=== PATIENT | female | born 1935 | race Asian ===

== ENCOUNTER 2016-11-10 12:43 | Outpatient (CLI) | payer MEDICARE ==
--- NOTE | 2016-11-10 17:56 | MRI Report ---
EXAM: MRI LUMBAR SPINE WITHOUT CONTRAST EXAM DATE: 11/10/2016 01:56 PM. CLINICAL HISTORY: Left sciatica. COMPARISON: 07/13/2016 plain x-ray of the lumbar spine. TECHNIQUE: Multiplanar, multisequence T1-weighted and fluid-sensitive sequences of the lumbar spine f rom T12 to S1 without contrast. Other: None. FINDINGS: Spinal Cord: The conus terminates at T12. No signal abnormality in the visualized spinal cord. Alignment: 4 mm retrolisthesis at T12-L1, similar to previous. 12.4 degrees of levoscoliosis between T11-T12 and L1-L2. Bone Marrow: Compression fracture at T12 involves the superior endplate only, with loss of about 50% of vertebral body height. No abnormal increased T2 signal seen in the vertebral body marrow. No gross fractures or bone lesions. No bone marrow edema. Disk Levels/Facets: T12-L1: Some disk dehydration, retrolisthesis and broad-based disk bulge. Mild central stenosis, no f oraminal stenosis. L1-L2: Broad-based bulge is noted. Mild central stenosis. Prominent facets. No foraminal stenosis L2-L3: Broad-based disk bulge. Prominent facets. L3-L4: Broad-based disk bulge. Prominent facets. No central or foraminal stenosis. L4-L5: Broad-based disk bulge is seen, slightly indenting the ventral thecal sac. Left lateral disk i ntraforaminal protrusion/extrusion with effacement and flattening of the exiting left L4 root on seri es 401 image 2. L5-S1: Disk dehydration, broad-based disk bulge. There is a left lateral focal protrusion also coming into contact with, effacing and slightly flattening the left S1 root in the subarticular zone on ser ies 901 image 5. This is 1.2 x 0.7 cm transversely and extends for a cephalocaudal distance of 0.9 cm . Musculature: Moderate fatty atrophy of the multifidus muscle. Other: The visualized pelvic cavity is unremarkable. IMPRESSION: 1. Spinal cord terminates at T12 which is normal. No abnormal cord signal is noted. 4 mm of retrolist hesis at T12-L1, similar to previous. 12.4 degrees of levoscoliosis between T11-T12 and L1-L2. Modera te fatty atrophy of the multifidus muscles is identified. Compression fracture at T12 involves about 50% of the anterior vertebral body height. No involvement of the posterior vertebral body cortex. Thi s is old. No edema in the vertebral body marrow. 2. T12-L1 shows disk dehydration, retrolisthesis and broad-based bulge with some disk uncovering. Mil d central stenosis, no foraminal stenosis. 3. L1-L2 shows a broad-based disk bulge, mild central stenosis. No foraminal stenosis. 4. L2-L3 shows a broad-based bulge, prominent facets and no stenosis. 5. L3-L4 shows a broad-based disk bulge and prominent facets and no stenosis. 6. L4-L5 shows a broad-based disk bulge slightly indenting the ventral thecal sac. There is a left la teral intraforaminal protrusion/extrusion with effacement and flattening of the exiting left L4 root. No central stenosis. Right neural foramen normal. 7. L5-S1 shows some disk dehydration and broad-based bulge. Left lateral focal protrusion with efface ment and deformity of the left S1 root in the subarticular zone. Mild central stenosis. No foraminal stenosis. Comment: The following findings are so common in adults without low back pain that while we report th eir presence, they must be interpreted with caution and in the context of the clinical situation. (Re serenity Rossk et al, Spine 2001) Prevalence of findings in patients without low back pain: Disk degeneration (any evidence): 92% Disk desiccation/T2 signal loss: 83% Disk height loss: 56% Disk bulge: 64% Disk protrusion: 32% Annular tear/high intensity zone: 38% [facility] Referring Provider Line: [phone] SITE ID: [id number]
== END 2016-11-10 12:44 | disposition home or self-care (01) ==
LOC: DI 12:43
PROVIDERS: ATTEND Family Medicine
DX: M48.54XA Collapsed vertebra, not elsewhere classified, thoracic region, initial encounter for fracture (principal); M51.35 Other intervertebral disc degeneration, thoracolumbar region; M51.26 Other intervertebral disc displacement, lumbar region; M51.36 Other intervertebral disc degeneration, lumbar region; M41.86 Other forms of scoliosis, lumbar region; M41.84 Other forms of scoliosis, thoracic region; M43.15 Spondylolisthesis, thoracolumbar region; M51.27 Other intervertebral disc displacement, lumbosacral region; M51.37 Other intervertebral disc degeneration, lumbosacral region
CPT/HCPCS: 72148

== ENCOUNTER 2017-03-14 09:38 | Outpatient (CLI) | payer MEDICARE, MEDICAID ==
--- NOTE | 2017-03-16 12:46 | DEXA Report ---
DEXA SCAN: 03/14/2017 CLINICAL INDICATION: Osteoporosis. TECHNIQUE: Dual energy x-ray absorptiometry (DXA) was performed on a [email or web address] system. Regions measured are the AP spine, femoral neck, and, if needed, forearm. COMPARISON: None. In accordance with the International Society for Clinical Densitometry (ISCD) guidelines, data from previous exams may be reanalyzed using current recommendations and techniques. This is done to allow a more accurate basis for comparison with the current study. FINDINGS: The data for the lumbar spine is as follows: REGION BMD (g/cm/cm) T-SCORE Z-SCORE L1 0.754 -3.1 -0.8 L2 0.775 -3.5 -1.2 L3 0.931 -2.2 0.1 L4 1.058 -1.2 1.2 TOTAL 0.893 -2.4 0.0 NOTE: All evaluable vertebrae are used for classification. The data for the hip is as follows: REGION BMD (g/cm/cm) T-SCORE Z-SCORE Neck 0.638 -2.9 -0.4 TOTAL 0.707 -2.4 0.0 NOTE: The femoral neck or total proximal femur, whichever is lowest, is used for classification. IMPRESSION THE WHO CLASSIFICATION BASED ON THE INTERNATIONAL REFERENCE STANDARD IS OSTEOPOROSIS (REFERENCE LEFT FEMORAL NECK). THE FRACTURE RISK IS HIGH. RECOMMENDATION: Patients with diagnosis of osteoporosis or osteopenia should have regular bone mineral density assessment. For those eligible for Medicare, routine testing is allowed once every 2 years. Testing frequency can be increased for patients who have rapidly progressing disease or for those who are receiving medical therapy to restore bone mass. COMMENT: World Health Organization (WHO) definitions for osteoporosis and osteopenia: NORMAL BMD: T-score at 1.0 or higher, fracture risk is low. OSTEOPENIA BMD: T-score between 1.0 and -2.5, fracture risk is increased. OSTEOPOROSIS BMD: T-score at 2.5 or lower, fracture risk high. National Osteoporosis Foundation recommends: 1. Obtain adequate dietary calcium (at least 1200 mg per day) and vitamin D (400 -800 international units per day). 2. Participate, as appropriate, in regular weightbearing and muscle- strengthening exercise. 3. Avoid tobacco use and reduce alcohol and caffeine intake. 4. For more detailed information see the website at www.NOF.org. TD: 03/14/2017 12:27 MTDJeff
== END 2017-03-14 09:39 | disposition home or self-care (01) ==
LOC: DI 09:38
PROVIDERS: ATTEND Family Medicine
DX: Z78.0 Asymptomatic menopausal state (principal); M81.0 Age-related osteoporosis without current pathological fracture
CPT/HCPCS: 77080

== ENCOUNTER 2017-04-09 09:56 | Outpatient (CLI) | payer MEDICARE, MEDICAID ==
[2017-04-09 14:21] LABS: ALBUMIN 4.2 g/dL (3.2-5.5); ALBUMIN/GLOBULIN RATIO 1.4 (1.0-2.2); BILIRUBIN,TOTAL 0.8 mg/dL (0.2-1.0); CREATININE 0.5 mg/dL (0.4-1.0); TOTAL PROTEIN 7.3 g/dL (6.7-8.2)
[2017-04-09 15:01] LABS: BASOPHILS % (AUTO) 0.5 %; EOSINOPHILS # (AUTO) 0.2 10^3/uL (0.0-0.7); EOSINOPHILS % (AUTO) 3.7 %; HGB - HEMOGLOBIN 13.3 g/dL (12.0-16.0); LYMPHOCYTES % (AUTO) 32.5 %; MEAN CORPUSCULAR HEMOGLOBIN 30.9 pg (27.0-31.0); MEAN CORPUSCULAR HGB CONC 34.4 g/dL (32.0-36.0); MEAN CORPUSCULAR VOLUME 89.7 fL (81.0-99.0); MONOCYTES # (AUTO) 0.5 10^3/uL (0.0-1.0); MONOCYTES % (AUTO) 8.7 %; NEUTROPHILS # (AUTO) 3.3 10^3/uL (1.5-6.6); NEUTROPHILS % (AUTO) 54.6 %; PLT - PLATELET COUNT 233 10^3/uL (130-450); RED BLOOD COUNT 4.32 10^6/uL (4.20-5.40); RED CELL DISTRIBUTION WIDTH 13.8 % (12.0-15.0); WHITE BLOOD COUNT 6.1 x10^3/uL (4.8-10.8)
== END 2017-04-09 09:57 | disposition home or self-care (01) ==
LOC: LAB.WCP 09:56
PROVIDERS: ATTEND Family Medicine
DX: I10 Essential (primary) hypertension (principal)
CPT/HCPCS: 36415; 80053; 85025

== ENCOUNTER 2018-10-07 08:00 | Outpatient (CLI) | payer MEDICARE, MEDICAID ==
[2018-10-07 18:41] LABS: ALBUMIN 4.1 g/dL (3.2-5.5); ALBUMIN/GLOBULIN RATIO 1.2 (1.0-2.2); BILIRUBIN,TOTAL 0.6 mg/dL (0.2-1.0); CALCIUM 9.3 mg/dL (8.5-10.3); TOTAL PROTEIN 7.5 g/dL (6.7-8.2)
== END 2018-10-07 23:59 | disposition home or self-care (01) ==
LOC: LAB.WCP 08:00
PROVIDERS: ATTEND Family Medicine
DX: I48.0 Paroxysmal atrial fibrillation (principal)
CPT/HCPCS: 36415; 80053

== ENCOUNTER 2018-10-23 09:00 | Outpatient (CLI) | payer MEDICARE, MEDICAID ==
--- NOTE | 2018-10-24 16:11 | XRAY Report ---
Reason: CHF,AFIB,HTN Procedure Date: 10/24/2018 Accession Number: [id number] / [id number] Procedure: WCP - Chest 2 View X-Ray CPT Code: 74690 FULL RESULT: EXAM: CHEST RADIOGRAPHY EXAM DATE: 10/24/2018 01:56 PM. CLINICAL HISTORY: CHF, atrial fibrillation, hypertension. Shortness of breath. COMPARISON: None. TECHNIQUE: 2 views. FINDINGS: Lungs/Pleura: No focal pneumonia or edema evident. No gross pneumothorax or pleural effusion. Mediastinum: Mild to moderate cardiomegaly. Calcified and mildly tortuous aortic contour. Other: Moderate scoliosis. IMPRESSION: Mild to moderate cardiomegaly without overt heart failure. RAD[facility]
== END 2018-10-23 23:59 | disposition home or self-care (01) ==
LOC: DI.WCP 09:00 → EDSTATUS 10-24 13:35
PROVIDERS: ATTEND Family Medicine
DX: I50.9 Heart failure, unspecified (principal); I48.91 Unspecified atrial fibrillation; R06.02 Shortness of breath
CPT/HCPCS: 71046

== ENCOUNTER 2018-10-24 08:00 | Outpatient (CLI) | payer MEDICARE, MEDICAID ==
[2018-10-24 18:54] LABS: HGB - HEMOGLOBIN 12.5 g/dL (12.0-16.0); MEAN CORPUSCULAR HEMOGLOBIN 29.7 pg (27.0-31.0); MEAN CORPUSCULAR HGB CONC 31.9 g/dL (32.0-36.0); MEAN CORPUSCULAR VOLUME 93.1 fL (81.0-99.0); MEAN PLATELET VOLUME 10.4 fL (7.9-10.8); RED BLOOD COUNT 4.21 10^6/uL (4.20-5.40); RED CELL DISTRIBUTION WIDTH 14.3 % (12.0-15.0); WHITE BLOOD COUNT 7.2 x10^3/uL (4.8-10.8)
[2018-10-24 19:13] LABS: ALBUMIN 3.9 g/dL (3.2-5.5); ALBUMIN/GLOBULIN RATIO 1.3 (1.0-2.2); CALCIUM 10.2 mg/dL (8.5-10.3); CREATININE 0.7 mg/dL (0.4-1.0)
== END 2018-10-24 23:59 | disposition home or self-care (01) ==
LOC: LAB.WCP 08:00
PROVIDERS: ATTEND Family Medicine
DX: I50.9 Heart failure, unspecified (principal); I48.0 Paroxysmal atrial fibrillation; R06.02 Shortness of breath; I51.7 Cardiomegaly
CPT/HCPCS: 36415; 71046; 80053; 83880; 85027

== ENCOUNTER 2019-01-14 08:00 | Outpatient (CLI) | payer MEDICARE, MEDICAID ==
[2019-01-14 13:25] LABS: CREATININE 0.7 mg/dL (0.4-1.0)
== END 2019-01-14 23:59 | disposition home or self-care (01) ==
LOC: LAB.WCP 08:00
PROVIDERS: ATTEND Family Medicine
DX: I48.91 Unspecified atrial fibrillation (principal); I34.0 Nonrheumatic mitral (valve) insufficiency; R60.0 Localized edema; I10 Essential (primary) hypertension
CPT/HCPCS: 36415; 80048

== ENCOUNTER 2020-08-16 22:34 | Outpatient (CLI) | payer MEDICARE, MEDICAID | END 2020-08-16 22:35 | disposition critical access hospital (66) | LOC: EMS 22:34 | DX: R40.4 Transient alteration of awareness (principal); R22.0 Localized swelling, mass and lump, head | CPT/HCPCS: A0425; A0429 ==

== ENCOUNTER 2020-08-16 23:05 | Inpatient (IN) | payer MEDICARE, MEDICAID ==
--- NOTE | 2020-08-16 23:04 | ED Physician Documentation ---
PD HPI FOCAL NEURO - Stated complaint Stated Complaint: STROKE - History obtained from History obtained from: Family (daughter (in ED at bedside)), EMS - History of Present Illness Timing - onset: Enter time (22:00) Timing - details: Still present in ED, Other (unknown) Time of symptom onset unknown: Time of onset unknown (last known normal 14:00, found down 22:00) Severity of deficit: Severe Weakness: Arm, Leg, Right Contributing factors: positive: Atrial fibrillation. negative: Anticoagulated Baseline status: positive: A&OX3, ambulatory, indep Similar symptoms before: Has not had sx before - Additional information Additional information: BIBA. patient is severely altered (AMS) and thus does not contribute to HPI/ROS. patient's daughter, who lives next door to patient, says that she last saw patient at 2 PM today at which time patient was out in the garden and in her usual state of sabrina (ambulatory and AAOx3). At approximately 10 PM tonight, patient was found by her granddaughter (who lives with patient) on the floor unresponsive. EMS notes patient is not moving right upper/lower extremity, has left gaze deviation, and aphasic, not following commands. Patient has POLST form indicating DNR and limited interventions Review of Systems Unable to obtain: AMS PD PAST MEDICAL HISTORY - Past Medical History Cardiovascular: Hypertension, High cholesterol, Atrial fibrillation - Present Medications Home Medications: Ambulatory Orders Medication Instructions Recorded Confirmed Diltiazem HCl [Cardizem LA] 240 mg PO DAILY 08/17/20 08/17/20 Furosemide [Lasix] 40 mg PO DAILY 08/17/20 08/17/20 Potassium Chloride [Klor-Con 10] 10 meq PO DAILY 08/17/20 08/17/20 Rivaroxaban [Xarelto] 20 mg PO QDDINNER 08/17/20 08/17/20 Rosuvastatin Calcium [Crestor] 2.5 mg PO QPM 08/17/20 08/17/20 - Allergies Allergies/Adverse Reactions: Allergies Allergy/AdvReac Type Severity Reaction Status Date / Time No Known Drug Allergies Allergy Verified 08/17/20 00:55 - Living Situation Living Situation: reports: With family Living Arrangement: reports: At home PD ED PE NORMAL - Vitals Vital signs reviewed: Yes - General General: Well developed/nourished PD ED PE EXPANDED - General General: Other (nonverbal, not following commands. frequent, nonpurposeful movement of LUE, no movement of RUE) - HEENT HEENT: PERRL HEENT Visual: 1 - bruising - Eyes Eyes: Other (left gaze deviation) - Cardiac Cardiac: Tachy, Irregularly irregular - Respiratory Respiratory: Clear to ausultation victor m - Abdomen Abdomen: Normal Bowel sounds. No: Tender to palpation - Neuro Neuro: Aphasia - GCS Eye Opening: Spontaneous Motor: Localizes to Pain Verbal: None Total: 10 NIHSS - Level of Consciousness Level of consciousness: (3) Responds only with reflex motor or autonomic effects LOC Questions: (2) Answers neither correct LOC Commands: (2)Performs none - Gaze Best Gaze: (2) Forced deviation - Visual Visual: (1) Partial hemianopia (questionbly testable with confrontation) - Facial Palsy Facial Palsy: (0) Normal, symmetrical movement - Motor Arms (both separate) Motor Arm (right): (4) No movement Motor Arm (left): (2) Some effort against gravity (not following commands, questionably testable) - Motor Legs (both separate) Motor Leg (right): (4) No movement Motor Leg (left): (2) Some effort against gravity (questionably testable due to not following commands) - Limb Ataxia Limb Ataxia: (0) Absent (unable to test due to not following commands) - Sensory Sensory: (0) Normal (unable to test due to not following commands and nonverbal) - Best Language Best Language: (3) Mute, global aphasia - Dysarthria Dysarthria: (0) Normal (unable to test, nonverbal) - Extinction and Inattention (formally neg Extinction and inattention: (2) Profound raoul-inattention or extinction to more than one modality - Total Score/Results Total Score/Result: 27 Results - Vitals Vitals: Oxygen O2 Source Room air - Labs Labs: Laboratory Tests 08/16/20 08/16/20 08/16/20 23:55 23:55 23:55 WBC 10.8 RBC 4.12 L Hgb 10.9 L Hct 36.2 L MCV 87.9 MCH 26.5 L MCHC 30.1 L RDW 16.7 H Plt Count 301 MPV 9.2 Neut # (Auto) 9.4 H Lymph # (Auto) 0.9 L Sanders # (Auto) 0.4 Eos # (Auto) 0.0 Baso # (Auto) 0.0 Absolute Nucleated RBC 0.00 Nucleated RBC % 0.0 PT 13.3 H INR 1.2 APTT 26.2 Sodium 137 Potassium 3.9 Chloride 98 L Carbon Dioxide 27 Anion Gap 12.0 BUN 17 Creatinine 0.5 Estimated GFR (MDRD) 118 Glucose 154 H Calcium 8.7 PD MEDICAL DECISION MAKING - ED course Complexity details: reviewed results, re-evaluated patient, considered differential, d/w family ED course: NIHSS score is estimated, as several aspects are not testable due to aphasia and not following commands. She has forced leftward gaze deviation, no movement of RUE and RLE. She is outside of window for consideration for thrombolytics. CTH is suggestive of evolving left MCA CVA. I discussed the case with the telestroke doctor and he recommends NOT giving thrombolytics nor transfer for procedural intervention (such as clot retrieval), and recommends comfort measures. D/W Dr. Perez, will admit to [facility] - [facility] CVA checklist Inclusion crititeria: positive: Sig neuro deficit, CT no bleed. negative: Onset know < 4.5 hr Absolute contraindications: positive: CT shows major est CVA Relative contraindications: positive: Too severe (NIHSS>22), Advanced age Absolute contraindications if 3-4.5 hr: positive: Age > 80 Departure - Departure Disposition: 66 [facility] DC/Xfer Clinical Impression: Cerebrovascular accident (CVA) Qualifiers: CVA mechanism: thrombosis Precerebral and cerebral artery: middle cerebral artery Laterality of affected vessel: left Qualified Code(s): I63.312 - Cerebral infarction due to thrombosis of left middle cerebral artery Condition: Stable Discharge Date/Time: 08/17/20 01:22
[2020-08-16] MEDS ORDERED: IOVERSOL 320 100 ML VIAL IVP ONE (23:45)
[2020-08-17] MEDS ORDERED: IOVERSOL 320 100 ML VIAL IVP ONE (00:03)
[2020-08-17 00:08] LABS: BASOPHILS % (AUTO) 0.4 %; HCT - HEMATOCRIT 36.2 % (37.0-47.0); HGB - HEMOGLOBIN 10.9 g/dL (12.0-16.0); LYMPHOCYTES # (AUTO) 0.9 10^3/uL (1.5-3.5); LYMPHOCYTES % (AUTO) 8.7 %; MEAN CORPUSCULAR HEMOGLOBIN 26.5 pg (27.0-31.0); MEAN CORPUSCULAR HGB CONC 30.1 g/dL (32.0-36.0); MEAN CORPUSCULAR VOLUME 87.9 fL (81.0-99.0); MEAN PLATELET VOLUME 9.2 fL (7.9-10.8); MONOCYTES # (AUTO) 0.4 10^3/uL (0.0-1.0); MONOCYTES % (AUTO) 3.7 %; NEUTROPHILS # (AUTO) 9.4 10^3/uL (1.5-6.6); NEUTROPHILS % (AUTO) 86.9 %; PLT - PLATELET COUNT 301 10^3/uL (130-450); RED BLOOD COUNT 4.12 10^6/uL (4.20-5.40); RED CELL DISTRIBUTION WIDTH 16.7 % (12.0-15.0); WHITE BLOOD COUNT 10.8 x10^3/uL (4.8-10.8)
[2020-08-17 00:17] LABS: INR 1.2 (0.8-1.2); PT - PROTHROMBIN TIME 13.3 secs (9.9-12.6)
[2020-08-17 00:19] LABS: CALCIUM 8.7 mg/dL (8.5-10.3); CREATININE 0.5 mg/dL (0.4-1.0); POTASSIUM 3.9 mmol/L (3.5-5.0)
[2020-08-17 00:24] LABS: PARTIAL THROMBOPLASTIN TIME 26.2 secs (24.9-33.3)
[2020-08-17] MEDS ORDERED: ONDANSETRON 4 MG/2 ML VIAL IVP PRN (00:35)
[2020-08-17] MEDS ORDERED: SODIUM CHLORIDE FLUSH 0.9% 10 ML SYRINGE IVP PRN (00:35)
--- NOTE | 2020-08-17 00:43 | HISTORY & PHYSICAL EXAMINATION ---
Chief Complaint - Chief Complaint Chief Complaint: Stroke History of Present Illness - Admitted From Admitted From:: ED - History Obtained From History obtained from: ED provider - History of Present Illness HPI Comment/Other: This is an 84-year-old [place]i female with a history of A. fib. She lives with a family member and her daughter lives next door. This patient's last known well was 2 PM when she was walking and talking normally. At 10 PM, her granddaughter found her on the floor, unable to speak. She was brought to the ER. The exam showed that she was flaccid on the right side, aphasic and unable to follow commands. She also had left gaze deviation. A head CT and head and neck CTA show findings of a subacute parenchymal brain infarction, and a thrombus (or dissection) in the left carotid artery extending into and occluding the left MCA territory. The posterior circulation is also abnormal. The ED provider reached out to Telestroke Neurology and they reviewed the case and the images. The Neurologist said the patient is not a candidate for anticoagulation or antithrombotics because of her DNR status and limited intervention status and also because she is out of the window of time for intervention, especially given how dense the stroke already is. The Telestroke Neurologist told our ED provider that she has a very bad prognosis and that she will likely need complete senior care care for the rest of her life. The Hospitalist team was contacted, and we are admitting her for management of an acute completed stroke. 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 - Family & Social History Living arrangement: At home Living Situation: With family - Substance History Use: Uses substance without health or social issues: NONE Meds/Allgy - Allergies Allergies/Adverse Reactions: Allergies Allergy/AdvReac Type Severity Reaction Status Date / Time No Known Drug Allergies Allergy Verified 08/17/20 00:55 Review of Systems - Constitutional Constitutional: reports: Other (It is unknown if she takes any meds whatsoever, nothing is listed.) - Musculoskeletal Musculoskeletal: reports: Muscle weakness - Neurological Neurological: reports: Focal weakness, Other (Aphasia) - All Other Systems All Other Systems: reports: Other (Limited review of systems performed from chart review and evaluating the patient, because daughter has left her bedside (and the pt speaks Tagalog).) Exam - Vital Signs Vital Signs: Vital Signs x48h Temp Pulse Resp BP Pulse Ox 08/16/20 23:08 36.8 C 112 H 20 158/124 H 92 - Physical Exam General Appearance: positive: Mild distress (Tachypneic) Eyes Bilateral: positive: Other (L gaze preference) ENT: positive: ENT inspection nml Neck: positive: Nml inspection (No JVD, No carotid bruits) Respiratory: positive: Breath sounds nml, Other (Tachypneic) Cardiovascular: positive: Irregularly irregular, Other (Tachy, no murmur) Abdomen: positive: Non-tender, Nml bowel sounds Skin: positive: Warm, Dry Extremities: positive: No pedal edema Neurologic/Psychiatric: positive: Other (Lethargic, moving L arm & leg slightly, R arm and leg flaccid, DTRs sluggish) Babinski Reflex: Right: Absent, Left: Absent Conclusion/Plan - Problem List (1) Cerebrovascular accident (CVA) Conclusion/Plan: Will place the patient on telemetry, monitor her rhythm and rate. Await for reconciliation of all her meds, resume any meds that can be given iv. Will order a purewick cath. Will order strict n.p.o. until she has a swallowing evaluation. Will give gentle iv hydration. We will order OT and PT evaluations and await their input as to whether she is rehabable or will indeed need senior care care. We will obtain an Echo to rule out cardiac source of embolus. Whether she undergoes a brain MRI will remain to be decided, since the results on head CT are already showing the problem. Permissive hypertension will be allowed for 1 to 2 days. Otherwise Labetalol IV will be used for blood pressure control. We will start 1 aspirin per rectum daily. Will obtain a fasting lipid panel in the morning. But it is unknown if she will be able to ever take a statin, if she cannot swallow. Qualifiers: CVA mechanism: thrombosis Precerebral and cerebral artery: middle cerebral artery Laterality of affected vessel: left Qualified Code(s): I63.312 - Cerebral infarction due to thrombosis of left middle cerebral artery (2) Carotid thrombosis Conclusion/Plan: As per findings on head and neck CT imaging. She is not a candidate for thrombolysis however, as described above. Will give daily aspirin, orally or per rectum if she cannot swallow. We will obtain Echo to evaluate for source of emboli Qualifiers: Laterality: left Qualified Code(s): I65.22 - Occlusion and stenosis of left carotid artery (3) HTN (hypertension) Conclusion/Plan: Patient is currently hypertensive at 159/129. We will allow permissive hypertension for 1 to 2 days. We will order only IV medicine for blood pressure control. (4) Atrial fibrillation with RVR Conclusion/Plan: The ED provider told me that she has a history of A. fib, it is unknown if she is on any heart rate slowing meds for this. She was not taking any anticoagulation as per the daughter. Her heart rates are reaching 110-170. We will start scheduled Labetalol IV for both heart rate and blood pressure c ontrol. Aspirin is planned for her stroke treatment, no anticoagulation use, since the risk of becoming a hemorrhagic stroke is possible in this early phase. (5) Abnormal EKG Conclusion/Plan: The EKG shows the rapid A. fib but also suggests that she has had an inferior AL in the past. There is no prior EKG in [facility] to compare. We will check a troponin level x2. We will await the Echo to look for wall motion maladies. Will await reconciliation of any home medications, order these IV if we can. (6) Anemia Conclusion/Plan: Would normally plan to work-up for B12, folate deficiency or iron deficiency however if her neurologic status rapidly worsens, will hold off on these labs for work-up. However, because 1 daily aspirin per rectum is being ordered, will order guaiac of the stool to assure that it is guaiac negative. - Lab Results Fish Bones: 08/16/20 23:55 08/16/20 23:55 - EKG Results EKG Interpreted Independently: Yes EKG Comparison: No prior EKG EKG Findings: Afib, rate 140, inferior Q waves and T wave flattening present, poor R wave progression.
[2020-08-17] MEDS ORDERED: D5.45NS W/20 MEQ KCL 1,000 ML IV SCH (01:00)
[2020-08-17] MEDS: SODIUM CHLORIDE FLUSH 0.9% 10 ML SYRINGE IVP SCH ×3 (01:38→15:50)
[2020-08-17] MEDS: LABETALOL 20 MG/4 ML SYRINGE IVP SCH ×2 (02:54→10:06)
[2020-08-17 03:33] LABS: B. PARAPERTUSSIS- RESP PCR PAN NOT DETECTED; B. PERTUSSIS- RESP PCR PANEL NOT DETECTED; C. PNEUMONIAE- RESP PCR PANEL NOT DETECTED; CORONAVIRUS 229E-RESP PCR NOT DETECTED; CORONAVIRUS HKU1-RESP PCR NOT DETECTED; CORONAVIRUS NL63-RESP PCR NOT DETECTED; CORONAVIRUS OC43-RESP PCR NOT DETECTED; HUMAN METAPNEUMOVIRUS NOT DETECTED; INFLUENZA A- RESP PCR PANEL NOT DETECTED; INFLUENZA B - RESP PCR PANEL NOT DETECTED; M. PNEUMONIAE- RESP PCR PANEL NOT DETECTED; PARAINFLUENZA VIRUS 1 NOT DETECTED; PARAINFLUENZA VIRUS 2 NOT DETECTED; PARAINFLUENZA VIRUS 3 NOT DETECTED; PARAINFLUENZA VIRUS 4 NOT DETECTED; RHINOVIRUS/ENTEROVIRUS NOT DETECTED; RSV- RESP PCR PANEL NOT DETECTED; SARS-CoV-2 -RESP PCR PANEL NOT DETECTED
[2020-08-17] MEDS ORDERED: hydrALAZINE INJ 20 MG/ML VIAL IVP PRN ×2 (04:18→10:42)
[2020-08-17 05:36] LABS: BASOPHILS % (AUTO) 0.3 %; HCT - HEMATOCRIT 38.5 % (37.0-47.0); HGB - HEMOGLOBIN 11.1 g/dL (12.0-16.0); LYMPHOCYTES # (AUTO) 0.8 10^3/uL (1.5-3.5); LYMPHOCYTES % (AUTO) 7.1 %; MEAN CORPUSCULAR HEMOGLOBIN 25.8 pg (27.0-31.0); MEAN CORPUSCULAR HGB CONC 28.8 g/dL (32.0-36.0); MEAN CORPUSCULAR VOLUME 89.3 fL (81.0-99.0); MEAN PLATELET VOLUME 10.8 fL (7.9-10.8); MONOCYTES # (AUTO) 0.4 10^3/uL (0.0-1.0); MONOCYTES % (AUTO) 3.4 %; NEUTROPHILS # (AUTO) 10.3 10^3/uL (1.5-6.6); NEUTROPHILS % (AUTO) 88.7 %; PLT - PLATELET COUNT 296 10^3/uL (130-450); RED BLOOD COUNT 4.31 10^6/uL (4.20-5.40); RED CELL DISTRIBUTION WIDTH 16.9 % (12.0-15.0); WHITE BLOOD COUNT 11.6 x10^3/uL (4.8-10.8)
[2020-08-17 05:40] LABS: SLIDE REVIEW? Indicated
[2020-08-17 05:57] LABS: ALBUMIN 4.7 g/dL (3.2-5.5); ALBUMIN/GLOBULIN RATIO 1.5 (1.0-2.2); ALKALINE PHOSPHATASE 100 IU/L (42-121); ALT ALANINE AMINOTRANSFERASE 28 IU/L (10-60); AST ASPARTATE AMINOTRANSFERASE 38 IU/L (10-42); BILIRUBIN,TOTAL 0.8 mg/dL (0.2-1.0); BUN - BLOOD UREA NITROGEN 16 mg/dL (6-20); CALCIUM 8.8 mg/dL (8.5-10.3); CARBON DIOXIDE - CO2 28 mmol/L (21-32); CHLORIDE 99 mmol/L (101-111); CHOLESTEROL 154 mg/dL; CREATININE 0.6 mg/dL (0.4-1.0); GFR - MDRD 95 (>89); GLUCOSE 203 mg/dL (70-100); HDL CHOLESTEROL 51 mg/dL; LDL CHOLESTEROL,CALCULATED 86 mg/dL; LDL/HDL RATIO 1.7 (<4.4); POTASSIUM 3.8 mmol/L (3.5-5.0); SODIUM 138 mmol/L (135-145); TOTAL PROTEIN 7.9 g/dL (6.7-8.2); TRIGLYCERIDES 87 mg/dL; VLDL CHOLESTEROL 17 mg/dL
[2020-08-17 06:06] LABS: PLATELET ESTIMATE, MANUAL NORMAL (130-450,000) (NORMAL); PLATELET MORPHOLOGY NORMAL APPEARANCE (NORMAL); WBC MORPHOLOGY (MULTIPLE) NORMAL APPEARANCE (NORMAL)
--- NOTE | 2020-08-17 08:03 | CT Report ---
PROCEDURE: Head W/O Stroke Protocol INDICATIONS: AMS TECHNIQUE: Noncontrast 4.5 mm thick angled axial sections acquired from the foramen magnum to the vertex, with c oronal reformats. For radiation dose reduction, the following was used: automated exposure control, adjustment of mA and/or kV according to patient size. COMPARISON: CT angiogram of the head 08/16/2020 FINDINGS: Image quality: Excellent. CSF spaces: Basal cisterns are patent. No extra-axial fluid collections. Ventricles are normal in size and shape. Brain: There is hypoattenuation with loss of wallace-white matter differentiation involving most of the left MCA territory. In addition, there is a hyperdense appearance of the left M1 segment suggesting t he presence of an occlusive thrombus at this location. This was confirmed on a subsequently obtained CT angiogram of the head. Wallace-white matter differentiation in the remaining brain parenchyma is main tained. There is no evidence of acute intracranial hemorrhage. Punctate senescent basal ganglia calci fications are present. Skull and face: Calvarium and visualized facial bones are intact, without suspicious lesions. Sinuses: Visualized sinuses and mastoids are clear. IMPRESSION: Findings indicative of acute versus early subacute left MCA infarct with a left M1 segme nt thrombus. No significant change from the preliminary report. This study fulfills neurological imaging criteria for inclusion or exclusion of acute stroke therapie s based on available published neurological imaging guidelines. Reviewed by: Blanco Ivey MD on 08/17/2020 8:02 AM PDT Approved by: Blanco Ivey MD on 08/17/2020 8:02 AM PDT Station ID: [id number]
--- NOTE | 2020-08-17 08:23 | CT Report ---
PROCEDURE: ANGIO NECK W INDICATIONS: Left-sided facial droop, left neck pain CONTRAST: IV CONTRAST: Optiray 320 ml: 80 PO CONTRAST: *NO PO CONTRAST TECHNIQUE: After the administration of intravenous contrast, 1.5 mm axial sections acquired from the aortic arch to the [place] of [place]. Coronal 3-D maximum intensity projection (MIP) and/or volume rendering ref ormats were then performed. For radiation dose reduction, the following was used: automated exposur e control, adjustment of mA and/or kV according to patient size. COMPARISON: CT angiogram of the head FINDINGS: Image quality: Excellent. Carotid system: Standard 3 vessel aortic arch anatomy. Atherosclerotic calcifications in the aortic a rch extending into the arch branch vessel origins without hemodynamically significant stenosis. The b ilateral common carotid arteries are normal in caliber. There is atherosclerotic plaque and calcifica tion at the carotid bifurcations which produces severe stenosis of the left carotid bifurcation which progresses to complete occlusion of the entire left internal carotid artery from the level of its or igin to the carotid terminus. There is atherosclerotic plaque and calcification in the remaining inte rnal carotid artery on the left. There is only mild stenosis of the right carotid bifurcation up to 2 0% with no significant narrowing of the remaining right internal carotid artery. Posterior circulation: Vertebral artery origins appear widely patent. There is atherosclerotic plaque and calcification in the right greater than left V4 segments, extending into the basilar artery. The left vertebral artery appears slightly dominant. Soft tissues: Visualized neck soft tissues demonstrate no suspicious abnormalities. The thyroid is normal in size and there are no incidental findings. Bones: No suspicious bony lesions. Visualized cervical spine appears normally aligned. 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 Severe stenosis of the left carotid bifurcation. Mild stenosis of the right carotid bifurcation. Mild narrowing of the V4 segments. The estimate of stenosis included in the report of the imaging study was calculated using the NASCET method CLINICAL RECOMMENDATION STATEMENTS: In patients <35 years with an ITN detected on CT, MRI, or extrathyroidal ultrasound, the Committee re commends further evaluation with dedicated thyroid ultrasound if the nodule is ?1 cm and has no suspi cious imaging features, and if the patient has normal life expectancy. In patients ?35 years with an ITN detected on CT, MRI, or extrathyroidal ultrasound, the Committee re commends further evaluation with dedicated thyroid ultrasound if the nodule is ?1.5 cm and has no diana picious imaging features, and if the patient has normal life expectancy. (ACR, 2014) Reviewed by: Blanco Ivey MD on 08/17/2020 8:21 AM PDT Approved by: Blanco Ivey MD on 08/17/2020 8:21 AM PDT Station ID: [id number]
--- NOTE | 2020-08-17 08:54 | CT Report ---
PROCEDURE: ANGIO HEAD W/WO INDICATIONS: AMS, left weakness, gaze deviation CONTRAST: IV CONTRAST: Optiray 320 ml: 80 PO CONTRAST: *NO PO CONTRAST TECHNIQUE: Precontrast 4.5 mm thick angled axial sections acquired from the foramen magnum to the vertex. Afte r the administration of intravenous contrast, 1 mm thick sections acquired through the Ollie of Will is. Postcontrast 4.5 mm thick sections then re-acquired from the foramen magnum to the vertex. 3-di mensional wwxikzp-jvjftdjuy-bmhqnjafjs (MIP) and/or volume rendering reformats were acquired of the c entral intracranial vasculature. For radiation dose reduction, the following was used: automated ex posure control, adjustment of mA and/or kV according to patient size. COMPARISON: None FINDINGS: Image quality: Excellent. 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 There is also complete occlusion of the left M1 segment. There is diminished e nhancement throughout the entire left MCA territory. Right carotid siphon and proximal M1 atheroscler otic disease without hemodynamically significant stenosis. Posterior circulation: Atherosclerotic calcifications in the V4 segments and proximal basilar artery without significant stenosis. 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 CSF spaces: Ventricles are normal in size and shape. Basal cisterns are patent. No extra-axial flu id collections. Brain: No midline shift. No intracranial bleeds or masses. Wallace-white matter interface appears int act. Skull and face: Calvarium and facial bones appear intact, without suspicious lesions. Sinuses: Visualized sinuses and mastoids are clear. 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 Findings are consistent with acute versus early subacute infarct. 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 No change from the preliminary report. Reviewed by: Blanco Ivey MD on 08/17/2020 8:52 AM PDT Approved by: Balnco Ivey MD on 08/17/2020 8:52 AM PDT Station ID: [id number]
[2020-08-17] MEDS ORDERED: LABETALOL 20 MG/4 ML SYRINGE IVP SCH (09:00)
[2020-08-17] MEDS: D5.45NS W/20 MEQ KCL 1,000 ML IV SCH ×2 (09:23→15:49)
[2020-08-17] MEDS: ASPIRIN 300 MG SUPP PR SCH (10:06)
[2020-08-17 11:14] LABS: BILIRUBIN,URINE NEGATIVE (NEGATIVE); GLUCOSE, URINE (UA) NEGATIVE (NEGATIVE); KETONES,URINE (UA) NEGATIVE (NEGATIVE); LEUKOCYTE ESTERASE, URINE NEGATIVE (NEGATIVE); NITRITE,URINE NEGATIVE (NEGATIVE); OCCULT BLOOD,URINE SMALL (NEGATIVE); PROTEIN,URINE TRACE mg/dL (NEGATIVE); UROBILINOGEN,URINE 0.2 (NORMAL) E.U./dL (NORMAL)
[2020-08-17 11:16] LABS: BACTERIA,URINE None Seen /HPF (None Seen); CLARITY,URINE CLEAR (CLEAR); MUCUS,URINE Few Strands; RBC,URINE 0-5 /HPF (0-5); SQUAMOUS EPITHELIAL CELL,UR RARE Squamous (<= Few); WBC,URINE 0-3 /HPF (0-5)
--- NOTE | 2020-08-17 12:59 | CONSULTATION NOTE ---
Palliative Care Consultation - Referral Referring Provider: CARLA Rdz Time of Visit: 7227-7491 Referral setting: Hospitalized patient Referral Reason: CVA/Advanced Care Planning - Information Sources Records reviewed: Previous records reviewed History/Review of Systems obtained from: Nursing (JAMIR Gorman), Other (Hospitalist CARLA Dimas) Exam limitations: Clinical condition (Sedated and unable to follow commands) - History of Present Illness Brief History of Present Illness: This is an 84-year-old Serbian female with a history of atrial fibrillation who sustained a CVA who is seen today with her daughter, Callie present for goals of care and advanced care planning. The patient yesterday was at her baseline function of working in her garden and ambulating with a rollator until she was found in the evening after dinner on the floor by her granddaughter who is living with her. She had emesis by her h ead and was not responding to her children. The children cleaned her up and contacted EMS and she presented to the emergency department where she had a head CT and neck CTA that demonstrated "subacute parenchymal brain infaction and a thrombus in the left carotid artery extending into and occluding the left MCA territory." Telestroke neurology was consulted and the patient was deemed not a candidate for anticoagulation or antithrombotics And was deemed that she has a poor prognosis and would likely need mcfp care for the rest of her life. At baseline, the patient has a history of atrial fibrillation and it is unclear if she was on anticoagulation therapy on an outpatient basis per the daughter's report. The patient has been minimally responsive and unable to follow commands per post hospitalist, nursing and daughters were port today. She was seen by PLATING EQUIPMENT TENDER at the bedside and was unable to participate in a swallow evaluation and will need to be reassessed at the present time due to her inability to follow commands she remains n.p.o. With the daughter at the bedside, the patient in Samoan as well as and Tagalog is unable to follow commands. She is demonstrating right-sided weakness and is known no apparent distress or discomfort. She is IV fluids infusing. 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 She relocated to the [place] in [place] 1993. She has 2 daughters residing in [place], 1 son is in [facility], and 4 children in the [facility]. She presently resides with 2 sons, [id number] and grandchildren. They all reside next-door to the patient's daughter and pseudo-DPOACallie ([phone]).The patient is bilingual in both Samoan and Tagalog. 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 She is Mormon and is affiliated with [facility]. Family History - Family History Family History: Mother: , Father: Family History Comment/Other: Mother at 89 due to old age, father at approximately 90 due to old age. She did have a grandmother who lived until 114 years of age. Medications/Allergies - Medications Active Medication List: Active Medications Aspirin (Aspirin 300 Mg Supp) 300 mg NC DAILY [facility] Last Admin: 08/17/20 10:06 Dose: 300 mg Documented by: Hydralazine HCl (Hydralazine Inj 20 Mg/Ml Vial) 10 mg IVP Q6H PRN PRN Reason: Hypertensive Emergency Potassium Chloride/Dextrose/Sod Cl (D5.45ns W/20 Meq Kcl) 1,000 mls @ 83.3 mls/hr IV .Q12H1M [facility] Stop: 08/18/20 08:55 Last Admin: 08/17/20 09:23 Dose: 83.3 mls/hr Documented by: Ondansetron HCl (Ondansetron 4 Mg/2 Ml Vial) 4 mg IVP Q6HR PRN PRN Reason: Nausea / Vomiting Sodium Chloride (Sodium Chloride Flush 0.9% 10 Ml Syringe) 10 ml IVP PRN PRN PRN Reason: NEEDED PER PROVIDER ORDERS Last Admin: 08/17/20 02:55 Dose: 10 ml Documented by: Sodium Chloride (Sodium Chloride Flush 0.9% 10 Ml Syringe) 10 ml IVP 0100,0900,1700 [facility] Last Admin: 08/17/20 09:24 Dose: 10 ml Documented by: - Allergies Allergies/Adverse Reactions: Allergies Allergy/AdvReac Type Severity Reaction Status Date / Time No Known Drug Allergies Allergy Verified 08/17/20 00:55 Review of Systems - Constitutional Constitutional: reports: Weight stable. denies: Fever - Ears, Nose & Throat Ears, Nose & Throat: reports: Dentures - Cardiovascular Cardiovascular: reports: Other (history of afib). denies: Edema - Respiratory Respiratory: denies: Other (not on supplemental oxygen) - Gastrointestinal Gastrointestinal: reports: Other (NPO due to sedation and unable to pass bedside PLATING EQUIPMENT TENDER). denies: Abdominal distention, Vomiting - Genitourinary Genitourinary: reports: Other (roth catheter in place draining clear yellow urine) - Musculoskeletal Musculoskeletal: reports: Stiffness - Integumentary Integumentary: denies: Rash - Neurological Neurological: reports: General weakness, Other (Right sided weakness UE and LE; aphasia) - All Other Systems All Other Systems: reports: Reviewed and negative (ROS supplemented by patient's daughter,Rosolia as patient is unable to follow commands) Physical Exam - Vital Signs Vital Signs: Vital Signs x48h Temp Pulse Resp BP BP Pulse Ox 08/17/20 08:45 37.2 C 91 22 163/85 H 95 08/17/20 06:15 91 16 158/86 H 96 - Physical Exam General Appearance: positive: No acute distress, Other (sedated, arousable to name and tactile stimulus but drifts back off to sleep; frail elderly woman in hospital bed) Eyes Bilateral: positive: PERRL ENT: positive: No signs of dehydration, Other (dentures not in place to upper or lower) Neck: positive: No JVD, Trachea midline Cardiovascular: positive: No murmur, Irregularly irregular Respiratory: positive: No respiratory distress, Breath sounds nml Abdomen: positive: Non-tender, Soft, Nml bowel sounds Skin: positive: No symptoms Extremities: positive: No pedal edema Neurologic/Psychiatric: positive: Weakness, Slurred/abnml speech (Aphasia and unable to communicate or follow commands), Other (slightly moving left arm and leg in bed; RUE and RLE without movement and flaccid) Palliative Care - POLST Patient has POLST: Yes POLST Status: DNR, Selective Treatment Pain: No pain Performance Status: Prior to this CVA the patient was ambulatory with her Rollator working in her garden with no history of falls, weight loss, and was independent of IADLs living in a home with her children. Presently, she has right-sided residual weakness due to CVA, unable to swallow, unable to follow commands. PPS 10% - Palliative Care Discussion: Unfortunately, the patient has a history of afibrillation that now presents with a CVA with residual right-sided weakness, aphasia, and dysphagia and per neurology has a poor prognosis and will need mcfp care for the rest of her life. The patient has 10 children and has does not have a designated healthcare power of hot knife cutter however, her daughter Missy is acting healthcare agent. The patient fortunately, did complete a POLST in June 2020 electing DN AR with selective treatments. Presently, the patient has been unable to follow even simple commands in either Samoan or talk although and as stated above has a poor prognosis. The patient herself as she was a WOODWIND INSTRUM[employer] INSPECTOR and cared for others has been clear to her children that she would not want any heroic interventions or tubes and machinery. She was very clear to her children that she would never want artificial nutrition through a PEG and the daughter was quite firm regarding this wish of the patie nt's and she wishes to have this honored. The patient has a loving and supporting family and this is indicative by the care that the patient's daughter is expressing and wishing to speak to all of her siblings in regards to a plan moving forward. At the present time, the patient would require mcfp care and relayed that if she is unable to be more alert to assess for swallowing and if the patient wishes were to be followed with not having a PEG tube placed then looking at days to weeks and prognosis as she would not be maintained with IV fluids. Patient's family would be open to transitioning to hospice services with support within the home. They are familiar with having a family member with a CVA who ultimately recovered with minimal residual effects. The patient's daughter, Missy as well as wishing to speak to all her siblings is also anxious to be able to have her siblings who still reside in the [facility] to be present to say goodbye to the patient if she continues on this trajectory. This is been made aware to the social work at the hospital to assist with potential planning and prompted the patient's daughter to work with a ax survey worker who is familiar with her province in the [facility] to also provide assistance. An alternative would be face timing/visual audio electronic although, this would not offer the same potential closure for the children in the [facility]. Results - Lab Results Fish Bones: 08/17/20 04:45 08/17/20 04:45 Lab and Imaging Results: Lab Results x24hrs 08/17/20 08/17/20 08/17/20 Range/Units 10:30 04:45 04:45 WBC 11.6 H (4.8-10.8) x10^3/uL RBC 4.31 (4.20-5.40) 10^6/uL Hgb 11.1 L (12.0-16.0) g/dL Hct 38.5 (37.0-47.0) % MCV 89.3 (81.0-99.0) fL MCH 25.8 L (27.0-31.0) pg MCHC 28.8 L (32.0-36.0) g/dL RDW 16.9 H (12.0-15.0) % Plt Count 296 (130-450) 10^3/uL MPV 10.8 (7.9-10.8) fL Neut # (Auto) 10.3 H (1.5-6.6) 10^3/uL Lymph # (Auto) 0.8 L (1.5-3.5) 10^3/uL Mckean # (Auto) 0.4 (0.0-1.0) 10^3/uL Eos # (Auto) 0.0 (0.0-0.7) 10^3/uL Baso # (Auto) 0.0 (0.0-0.1) 10^3/uL Absolute Nucleated RBC 0.00 x10^3/uL Nucleated RBC % 0.0 /100WBC Manual Slide Review Indicated WBC Morphology NORMAL APPEARANCE (NORMAL) Platelet Estimate NORMAL (130-450,000) (NORMAL) Platelet Morphology NORMAL APPEARANCE (NORMAL) RBC Morph Micro Appear 1+ OVALOCYTES (NORMAL) PT (9.9-12.6) secs INR (0.8-1.2) APTT (24.9-33.3) secs Sodium (135-145) mmol/L Potassium (3.5-5.0) mmol/L Chloride (101-111) mmol/L Carbon Dioxide (21-32) mmol/L Anion Gap (6-13) BUN (6-20) mg/dL Creatinine (0.4-1.0) mg/dL Estimated GFR (MDRD) (>89) Glucose (70-100) mg/dL Calcium (8.5-10.3) mg/dL Total Bilirubin (0.2-1.0) mg/dL AST (10-42) IU/L ALT (10-60) IU/L Alkaline Phosphatase (42-121) IU/L Troponin I High Sens 12.9 (2.3-14.8) ng/L Total Protein (6.7-8.2) g/dL Albumin (3.2-5.5) g/dL Globulin (2.1-4.2) g/dL Albumin/Globulin Ratio (1.0-2.2) Triglycerides ( - 149) mg/dL Cholesterol ( - 199) mg/dL LDL Cholesterol, Calc ( - 129) mg/dL VLDL Cholesterol mg/dL HDL Cholesterol (60 - ) mg/dL LDL/HDL Ratio (<4.4) Cholesterol/HDL Ratio (<4.4) Urine Color YELLOW Urine Clarity CLEAR (CLEAR) Urine pH 7.0 (5.0-7.5) PH Ur Specific Stafford 1.020 (1.002-1.030) Urine Protein TRACE (NEGATIVE) mg/dL Urine Glucose (UA) NEGATIVE (NEGATIVE) mg/dL Urine Ketones NEGATIVE (NEGATIVE) mg/dL Urine Occult Blood SMALL H (NEGATIVE) Urine Nitrite NEGATIVE (NEGATIVE) Urine Bilirubin NEGATIVE (NEGATIVE) Urine Urobilinogen 0.2 (NORMAL) (NORMAL) E.U./dL Ur Leukocyte Esterase NEGATIVE (NEGATIVE) Urine RBC 0-5 (0-5) /HPF Urine WBC 0-3 (0-5) /HPF Ur Squamous Epith Cells RARE Squamous (<= Few) Urine Bacteria None Seen (None Seen) /HPF Urine Mucus Few Strands Urine Culture Comments NOT INDICATED Nasal Adenovirus (PCR) Nasal B. parapertussis DNA (PCR) Nasal Coronavir 229E PCR Nasal Coronavir HKU1 PCR Nasal Coronavir NL63 PCR Nasal Coronavir OC43 PCR Nasal Enterovir/Rhinovir PCR Nasal Influenza B PCR Nasal Influenza A PCR Nasal Parainfluen 1 PCR Nasal Parainfluen 2 PCR Nasal Parainfluen 3 PCR Nasal Parainfluen 4 PCR Nasal RSV (PCR) Nasal B.pertussis DNA PCR Nasal C.pneumoniae (PCR) Mark Human Metapneumo PCR Nasal M.pneumoniae (PCR) Nasal SARS-CoV-2 (PCR) 08/17/20 08/17/20 08/16/20 Range/Units 04:45 00:57 23:55 WBC (4.8-10.8) x10^3/uL RBC (4.20-5.40) 10^6/uL Hgb (12.0-16.0) g/dL Hct (37.0-47.0) % MCV (81.0-99.0) fL MCH (27.0-31.0) pg MCHC (32.0-36.0) g/dL RDW (12.0-15.0) % Plt Count (130-450) 10^3/uL MPV (7.9-10.8) fL Neut # (Auto) (1.5-6.6) 10^3/uL Lymph # (Auto) (1.5-3.5) 10^3/uL Mckean # (Auto) (0.0-1.0) 10^3/uL Eos # (Auto) (0.0-0.7) 10^3/uL Baso # (Auto) (0.0-0.1) 10^3/uL Absolute Nucleated RBC x10^3/uL Nucleated RBC % /100WBC Manual Slide Review WBC Morphology (NORMAL) Platelet Estimate (NORMAL) Platelet Morphology (NORMAL) RBC Morph Micro Appear (NORMAL) PT (9.9-12.6) secs INR (0.8-1.2) APTT (24.9-33.3) secs Sodium 138 137 (135-145) mmol/L Potassium 3.8 3.9 (3.5-5.0) mmol/L Chloride 99 L 98 L (101-111) mmol/L Carbon Dioxide 28 27 (21-32) mmol/L Anion Gap 11.0 12.0 (6-13) BUN 16 17 (6-20) mg/dL Creatinine 0.6 0.5 (0.4-1.0) mg/dL Estimated GFR (MDRD) 95 118 (>89) Glucose 203 H 154 H (70-100) mg/dL Calcium 8.8 8.7 (8.5-10.3) mg/dL Total Bilirubin 0.8 (0.2-1.0) mg/dL AST 38 (10-42) IU/L ALT 28 (10-60) IU/L Alkaline Phosphatase 100 (42-121) IU/L Troponin I High Sens (2.3-14.8) ng/L Total Protein 7.9 (6.7-8.2) g/dL Albumin 4.7 (3.2-5.5) g/dL Globulin 3.2 (2.1-4.2) g/dL Albumin/Globulin Ratio 1.5 (1.0-2.2) Triglycerides 87 ( - 149) mg/dL Cholesterol 154 ( - 199) mg/dL LDL Cholesterol, Calc 86 ( - 129) mg/dL VLDL Cholesterol 17 mg/dL HDL Cholesterol 51 L (60 - ) mg/dL LDL/HDL Ratio 1.7 (<4.4) Cholesterol/HDL Ratio 3.0 (<4.4) Urine Color Urine Clarity (CLEAR) Urine pH (5.0-7.5) PH Ur Specific Stafford (1.002-1.030) Urine Protein (NEGATIVE) mg/dL Urine Glucose (UA) (NEGATIVE) mg/dL Urine Ketones (NEGATIVE) mg/dL Urine Occult Blood (NEGATIVE) Urine Nitrite (NEGATIVE) Urine Bilirubin (NEGATIVE) Urine Urobilinogen (NORMAL) E.U./dL Ur Leukocyte Esterase (NEGATIVE) Urine RBC (0-5) /HPF Urine WBC (0-5) /HPF Ur Squamous Epith Cells (<= Few) Urine Bacteria (None Seen) /HPF Urine Mucus Urine Culture Comments Nasal Adenovirus (PCR) NOT DETECTED Nasal B. parapertussis DNA (PCR) NOT DETECTED Nasal Coronavir 229E PCR NOT DETECTED Nasal Coronavir HKU1 PCR NOT DETECTED Nasal Coronavir NL63 PCR NOT DETECTED Nasal Coronavir OC43 PCR NOT DETECTED Nasal Enterovir/Rhinovir PCR NOT DETECTED Nasal Influenza B PCR NOT DETECTED Nasal Influenza A PCR NOT DETECTED Nasal Parainfluen 1 PCR NOT DETECTED Nasal Parainfluen 2 PCR NOT DETECTED Nasal Parainfluen 3 PCR NOT DETECTED Nasal Parainfluen 4 PCR NOT DETECTED Nasal RSV (PCR) NOT DETECTED Nasal B.pertussis DNA PCR NOT DETECTED Nasal C.pneumoniae (PCR) NOT DETECTED Amrk Human Metapneumo PCR NOT DETECTED Nasal M.pneumoniae (PCR) NOT DETECTED Nasal SARS-CoV-2 (PCR) NOT DETECTED 08/16/20 08/16/20 Range/Units 23:55 23:55 WBC 10.8 (4.8-10.8) x10^3/uL RBC 4.12 L (4.20-5.40) 10^6/uL Hgb 10.9 L (12.0-16.0) g/dL Hct 36.2 L (37.0-47.0) % MCV 87.9 (81.0-99.0) fL MCH 26.5 L (27.0-31.0) pg MCHC 30.1 L (32.0-36.0) g/dL RDW 16.7 H (12.0-15.0) % Plt Count 301 (130-450) 10^3/uL MPV 9.2 (7.9-10.8) fL Neut # (Auto) 9.4 H (1.5-6.6) 10^3/uL Lymph # (Auto) 0.9 L (1.5-3.5) 10^3/uL Mckean # (Auto) 0.4 (0.0-1.0) 10^3/uL Eos # (Auto) 0.0 (0.0-0.7) 10^3/uL Baso # (Auto) 0.0 (0.0-0.1) 10^3/uL Absolute Nucleated RBC 0.00 x10^3/uL Nucleated RBC % 0.0 /100WBC Manual Slide Review WBC Morphology (NORMAL) Platelet Estimate (NORMAL) Platelet Morphology (NORMAL) RBC Morph Micro Appear (NORMAL) PT 13.3 H (9.9-12.6) secs INR 1.2 (0.8-1.2) APTT 26.2 (24.9-33.3) secs Sodium (135-145) mmol/L Potassium (3.5-5.0) mmol/L Chloride (101-111) mmol/L Carbon Dioxide (21-32) mmol/L Anion Gap (6-13) BUN (6-20) mg/dL Creatinine (0.4-1.0) mg/dL Estimated GFR (MDRD) (>89) Glucose (70-100) mg/dL Calcium (8.5-10.3) mg/dL Total Bilirubin (0.2-1.0) mg/dL AST (10-42) IU/L ALT (10-60) IU/L Alkaline Phosphatase (42-121) IU/L Troponin I High Sens (2.3-14.8) ng/L Total Protein (6.7-8.2) g/dL Albumin (3.2-5.5) g/dL Globulin (2.1-4.2) g/dL Albumin/Globulin Ratio (1.0-2.2) Triglycerides ( - 149) mg/dL Cholesterol ( - 199) mg/dL LDL Cholesterol, Calc ( - 129) mg/dL VLDL Cholesterol mg/dL HDL Cholesterol (60 - ) mg/dL LDL/HDL Ratio (<4.4) Cholesterol/HDL Ratio (<4.4) Urine Color Urine Clarity (CLEAR) Urine pH (5.0-7.5) PH Ur Specific Stafford (1.002-1.030) Urine Protein (NEGATIVE) mg/dL Urine Glucose (UA) (NEGATIVE) mg/dL Urine Ketones (NEGATIVE) mg/dL Urine Occult Blood (NEGATIVE) Urine Nitrite (NEGATIVE) Urine Bilirubin (NEGATIVE) Urine Urobilinogen (NORMAL) E.U./dL Ur Leukocyte Esterase (NEGATIVE) Urine RBC (0-5) /HPF Urine WBC (0-5) /HPF Ur Squamous Epith Cells (<= Few) Urine Bacteria (None Seen) /HPF Urine Mucus Urine Culture Comments Nasal Adenovirus (PCR) Nasal B. parapertussis DNA (PCR) Nasal Coronavir 229E PCR Nasal Coronavir HKU1 PCR Nasal Coronavir NL63 PCR Nasal Coronavir OC43 PCR Nasal Enterovir/Rhinovir PCR Nasal Influenza B PCR Nasal Influenza A PCR Nasal Parainfluen 1 PCR Nasal Parainfluen 2 PCR Nasal Parainfluen 3 PCR Nasal Parainfluen 4 PCR Nasal RSV (PCR) Nasal B.pertussis DNA PCR Nasal C.pneumoniae (PCR) Mark Human Metapneumo PCR Nasal M.pneumoniae (PCR) Nasal SARS-CoV-2 (PCR) Impression and Recommendations - Palliative Care Impression: This is an unfortunate 84-year-old female with a history of atrial fibrillation who has sustained a significant CVA resulting in right-sided residual weakness, dysphagia, and aphasia who does not have a firm designated healthcare power of hot knife cutter in the setting of 10 children. The patient has been very clear to her children regarding her wishes for end-of-life and will need to continue to tease out and see where the patient's plans moving forward but the patient's family appears to be open to transitioning to hospice services after lengthy does have a family discussion and plan is for palliative care to meet with the patient's daughter and reconvene regarding plan moving forward tomorrow. Recommendations/Counseling Done: 1. CVA. Acute event in the setting of atrial fibrillation. Patient is sedated and unable to follow commands. Per neurology consult via telestroke neurology the patient has a poor prognosis and will likely need to complete mcfp care for the rest of her life. As the patient is unable to follow commands nor have a full assessment by bedside PLATING EQUIPMENT TENDER she is at high risk for aspiration and was very clear to her children regarding advanced care planning that she would not want a artificial nutrition by tube and therefore alignment of goals may need to transition to comfort measures to be with her family at home versus a facility setting. Reviewed pathophysiology at length with the patient's daughterMissy at the bedside regarding CVA with questions answered and addressed and assistance with discussion to have be had with her siblings moving forward in relation to goals of care. Empathetic listening provided. Unlikely given the extent of the patient's CVA that she would be able to return to her baseline status and will need to determine where the patient will lend but if she is unable to consume caloric intake independently prognosis is days to weeks. 2. Atrial fibrillation. History of atrial fibrillation. Unclear if she was on an anticoagulant Lantus prior to admission. Was on to tell exam for rate control. Followed by hospitalist team while inpatient. 3. Advanced care planning. Patient has POLST in place as DN AR with selective interventions. She has 10 children without a designated healthcare power of hot knife cutter. Her daughter, Missy is acting spokesperson for the family and plans to speak to all of her siblings to determine a plan of care moving forward. The patient has been very clear to her children that she would not want to have any tubes placed and nor would she want to live as long as her 1 grandmother at 114 years of age. If prognosis is poor-the family would be leaning towards hospice services and this was related to the patient's daughter about how what hospice services would look like within a facility environment versus home environment. Empathetic and supportive listening provided to the patient's daughter regarding acute status change in the patient's previous baseline function. Plan to continue to tease out goals of care and formulate a plan moving forward for discharge planning. Total time spent 75 minutes with greater than 50% of this spent in counseling and coordination of care with patient's daughter,RN socialwork and hospitalist; review of pathophysiology of CVA; review of hospice and palliative care philosophy; review of symptom management and anticipatory guidance. Disclaimer: The chart note was formulated using voice recognition technology and unfortunately sound alike errors may occur.
--- NOTE | 2020-08-17 13:55 | PHARMACY PROGRESS NOTE ---
- Best Possible Medication History Admit Date and Time: 08/17/20 0034 Processed by: Pharmacy Medication History completed: Yes Patient Interview: Pt unable to participate Secondary Source(s): Pharmacy records, Insurance records As the person ultimately responsible for medication therapy, providers are able to order a medication from an existing home medication list in [facility] via the "Reconcile Routine" prior to Confirmation of that medication by computer support analyst. Such practice is discouraged except when the physician, in their clinical judgment, deems that a medical need exists for a medication without regard to previous use.
[2020-08-17] MEDS ORDERED: METOPROLOL 5 MG/5 ML VIAL IVP PRN (15:34)
--- NOTE | 2020-08-17 15:41 | PROVIDER PROGRESS NOTE ---
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 Patient did not response to Command, and she is not speaking. 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 Patient failed to speech therapist for swallowing test. Patient's daughter came to the hospital and clearly stated patient does not want to have feeding tube. We consulted with the palliative care, We will continue to discuss care plan with patient's family. Patient's daughter State she will discuss with pt's whole patient family to make final decision We will continue supp aspirin, Continue to allow patient rise blood pressure, add hydralazine as needed, Echo is pending, continue IVF (2) Carotid thrombosis Conclusion/Plan: As shown on head and neck CT imaging. ER contacted with neurologist, She is not a candidate for thrombolysis. Will give daily aspirin per rectum. Consult with palliative care, We will continue to discuss the care plan with the patient's family (3) HTN (hypertension) Conclusion/Plan: allow pt rise BP on first 24 hrs. add hydralazine as needed (4) Atrial fibrillation with RVR Conclusion/Plan: HR is stable, add IV of Metoprolol as needed, hold Xarelto now (5) Anemia HGB is 11.1, stable, continue lab monitor - Current Meds Current Meds: Current Medications Generic Name Dose Route Start Last Admin Trade Name Freq PRN Reason Stop Dose Admin Aspirin 300 mg 08/17/20 09:00 08/17/20 10:06 Aspirin 300 Mg Supp [place] 300 mg DAILY JUN Administration Potassium Chloride/Dextrose/Sod Cl 1,000 mls @ 83.3 mls/hr 08/17/20 08:56 08/17/20 09:23 D5.45ns W/20 Meq Kcl IV 08/18/20 08:55 83.3 mls/hr .Q12H1M JUN Administration Sodium Chloride 10 ml 08/17/20 00:35 08/17/20 02:55 Sodium Chloride Flush 0.9% 10 Ml Syringe IVP 10 ml PRN PRN Administration NEEDED PER PROVIDER ORDERS Sodium Chloride 10 ml 08/17/20 01:00 08/17/20 09:24 Sodium Chloride Flush 0.9% 10 Ml Syringe IVP 10 ml 0100,0900,1700 JUN Administration - Lab Result Fish Bone Diagrams: 08/17/20 04:45 08/17/20 04:45 - Additional Planning My Orders: My Active Orders 08/17/20 Palliative Care Consult [CONS] Routine 08/17/20 08:56 D5.45ns W/20 Meq KCl 1,000 ml IV 83.3 mls/hr 08/17/20 09:23 Sahu Insertion [RC] QSHIFT 08/17/20 10:42 hydrALAZINE INJ [Apresoline Inj] 10 mg IVP Q6H PRN 08/17/20 15:34 Metoprolol Inj [Lopressor Inj] 5 mg IVP Q6H PRN 08/18/20 05:00 BMP - BASIC METABOLIC PANEL [CHEM] DAILYLAB CBC - COMP BLD CT W/AUTO DIFF [HEME] DAILYLAB 08/19/20 05:00 BMP - BASIC METABOLIC PANEL [CHEM] DAILYLAB CBC - COMP BLD CT W/AUTO DIFF [HEME] DAILYLAB 08/20/20 05:00 BMP - BASIC METABOLIC PANEL [CHEM] DAILYLAB CBC - COMP BLD CT W/AUTO DIFF [HEME] DAILYLAB 08/21/20 05:00 BMP - BASIC METABOLIC PANEL [CHEM] DAILYLAB CBC - COMP BLD CT W/AUTO DIFF [HEME] DAILYLAB 08/22/20 05:00 BMP - BASIC METABOLIC PANEL [CHEM] DAILYLAB CBC - COMP BLD CT W/AUTO DIFF [HEME] DAILYLAB Subjective - Subjective Nursing Reports: Other (barely response to command) Objective Vital Signs: Vital Signs - 24 hr 08/16/20 08/17/20 08/17/20 23:08 00:42 01:00 Temperature 36.8 C 36.3 C L Heart Rate 112 H 118 H Heart Rate [ 107 H Brachial] Respiratory 20 20 20 Rate Blood Pressure 158/124 H 190/132 H Blood Pressure 215/115 H [Left Brachial artery] Blood Pressure [Right Brachial artery] O2 Saturation 92 100 96 08/17/20 08/17/20 08/17/20 01:45 02:52 02:57 Temperature Heart Rate Heart Rate [ 121 H 102 H 83 Brachial] Respiratory 16 16 Rate Blood Pressure Blood Pressure 174/107 H 157/114 H 170/94 H [Left Brachial artery] Blood Pressure [Right Brachial artery] O2 Saturation 08/17/20 08/17/20 08/17/20 03:02 03:07 03:21 Temperature Heart Rate Heart Rate [ 84 87 85 Brachial] Respiratory Rate Blood Pressure Blood Pressure 161/84 H 157/84 H 174/89 H [Left Brachial artery] Blood Pressure [Right Brachial artery] O2 Saturation 08/17/20 08/17/20 08/17/20 03:30 03:45 04:02 Temperature Heart Rate Heart Rate [ 85 90 Brachial] Respiratory Rate Blood Pressure Blood Pressure 211/130 H 221/95 H 150/123 H [Left Brachial artery] Blood Pressure [Right Brachial artery] O2 Saturation 08/17/20 08/17/20 08/17/20 06:15 08:45 13:00 Temperature 37.2 C 37.3 C Heart Rate Heart Rate [ 91 91 101 H Brachial] Respiratory 16 22 16 Rate Blood Pressure Blood Pressure 158/86 H [Left Brachial artery] Blood Pressure 163/85 H 153/95 H [Right Brachial artery] O2 Saturation 96 95 96 Oxygen O2 Source Room air Oxygen Flow Rate 2 I&O (Last 24 Hrs): Intake and Output Totals x24h 08/15/20 08/16/20 08/17/20 23:59 23:59 23:59 Intake Total 400 Output Total 1175 Balance -775 General: Alert, No acute distress HEENT: Atraumatic Neck: Supple Lymphatic: no adenopathy Neuro: Alert, Focal Deficits (Right side paralyzed including upper and lower extremities.) Cardiovascular: Regular rate, Normal S1, Normal S2 Respiratory: Chest non-tender, No respiratory distress Abdomen: Normal bowel sounds, Soft Extremities: Normal pulses - Results Results: Laboratory Results WBC 11.6 x10^3/uL (4.8-10.8) H 08/17/20 04:45 RBC 4.31 10^6/uL (4.20-5.40) 08/17/20 04:45 Hgb 11.1 g/dL (12.0-16.0) L 08/17/20 04:45 Hct 38.5 % (37.0-47.0) 08/17/20 04:45 MCV 89.3 fL (81.0-99.0) 08/17/20 04:45 MCH 25.8 pg (27.0-31.0) L 08/17/20 04:45 MCHC 28.8 g/dL (32.0-36.0) L 08/17/20 04:45 RDW 16.9 % (12.0-15.0) H 08/17/20 04:45 Plt Count 296 10^3/uL (130-450) 08/17/20 04:45 MPV 10.8 fL (7.9-10.8) 08/17/20 04:45 Neut # (Auto) 10.3 10^3/uL (1.5-6.6) H 08/17/20 04:45 Lymph # (Auto) 0.8 10^3/uL (1.5-3.5) L 08/17/20 04:45 Gaines # (Auto) 0.4 10^3/uL (0.0-1.0) 08/17/20 04:45 Eos # (Auto) 0.0 10^3/uL (0.0-0.7) 08/17/20 04:45 Baso # (Auto) 0.0 10^3/uL (0.0-0.1) 08/17/20 04:45 Absolute Nucleated RBC 0.00 x10^3/uL 08/17/20 04:45 Nucleated RBC % 0.0 /100WBC 08/17/20 04:45 Manual Slide Review Indicated 08/17/20 04:45 WBC Morphology NORMAL APPEARANCE (NORMAL) 08/17/20 04:45 Platelet Estimate NORMAL (130-450,000) (NORMAL) 08/17/20 04:45 Platelet Morphology NORMAL APPEARANCE (NORMAL) 08/17/20 04:45 RBC Morph Micro Appear 1+ HYPOCHROMASIA (NORMAL) 1+ OVALOCYTES (NORMAL) 08/17/20 04:45 RBC Morph Micro Appear 1+ HYPOCHROMASIA (NORMAL) 1+ OVALOCYTES (NORMAL) 08/17/20 04:45 PT 13.3 secs (9.9-12.6) H 08/16/20 23:55 INR 1.2 (0.8-1.2) 08/16/20 23:55 APTT 26.2 secs (24.9-33.3) 08/16/20 23:55 Sodium 138 mmol/L (135-145) 08/17/20 04:45 Potassium 3.8 mmol/L (3.5-5.0) 08/17/20 04:45 Chloride 99 mmol/L (101-111) L 08/17/20 04:45 Carbon Dioxide 28 mmol/L (21-32) 08/17/20 04:45 Anion Gap 11.0 (6-13) 08/17/20 04:45 BUN 16 mg/dL (6-20) 08/17/20 04:45 Creatinine 0.6 mg/dL (0.4-1.0) 08/17/20 04:45 Estimated GFR (MDRD) 95 (>89) 08/17/20 04:45 Glucose 203 mg/dL (70-100) H 08/17/20 04:45 Calcium 8.8 mg/dL (8.5-10.3) 08/17/20 04:45 Total Bilirubin 0.8 mg/dL (0.2-1.0) 08/17/20 04:45 AST 38 IU/L (10-42) 08/17/20 04:45 ALT 28 IU/L (10-60) 08/17/20 04:45 Alkaline Phosphatase 100 IU/L (42-121) 08/17/20 04:45 Troponin I High Sens 12.9 ng/L (2.3-14.8) 08/17/20 04:45 Total Protein 7.9 g/dL (6.7-8.2) 08/17/20 04:45 Albumin 4.7 g/dL (3.2-5.5) 08/17/20 04:45 Globulin 3.2 g/dL (2.1-4.2) 08/17/20 04:45 Albumin/Globulin Ratio 1.5 (1.0-2.2) 08/17/20 04:45 Triglycerides 87 mg/dL (-149) 08/17/20 04:45 Cholesterol 154 mg/dL (-199) 08/17/20 04:45 LDL Cholesterol, Calc 86 mg/dL (-129) 08/17/20 04:45 VLDL Cholesterol 17 mg/dL 08/17/20 04:45 HDL Cholesterol 51 mg/dL (60-) L 08/17/20 04:45 LDL/HDL Ratio 1.7 (<4.4) 08/17/20 04:45 Cholesterol/HDL Ratio 3.0 (<4.4) 08/17/20 04:45 Urine Color YELLOW 08/17/20 10:30 Urine Clarity CLEAR (CLEAR) 08/17/20 10:30 Urine pH 7.0 PH (5.0-7.5) 08/17/20 10:30 Ur Specific [place] 1.020 (1.002-1.030) 08/17/20 10:30 Urine Protein TRACE mg/dL (NEGATIVE) 08/17/20 10:30 Urine Glucose (UA) NEGATIVE mg/dL (NEGATIVE) 08/17/20 10:30 Urine Ketones NEGATIVE mg/dL (NEGATIVE) 08/17/20 10:30 Urine Occult Blood SMALL (NEGATIVE) H 08/17/20 10:30 Urine Nitrite NEGATIVE (NEGATIVE) 08/17/20 10:30 Urine Bilirubin NEGATIVE (NEGATIVE) 08/17/20 10:30 Urine Urobilinogen 0.2 (NORMAL) E.U./dL (NORMAL) 08/17/20 10:30 Ur Leukocyte Esterase NEGATIVE (NEGATIVE) 08/17/20 10:30 Urine RBC 0-5 /HPF (0-5) 08/17/20 10:30 Urine WBC 0-3 /HPF (0-5) 08/17/20 10:30 Ur Squamous Epith Cells RARE Squamous (<= Few) 08/17/20 10:30 Urine Bacteria None Seen /HPF (None Seen) 08/17/20 10:30 Urine Mucus Few Strands 08/17/20 10:30 Urine Culture Comments NOT INDICATED 08/17/20 10:30 Nasal Adenovirus (PCR) NOT DETECTED 08/17/20 00:57 Nasal B. parapertussis DNA (PCR) NOT DETECTED 08/17/20 00:57 Nasal Coronavir 229E PCR NOT DETECTED 08/17/20 00:57 Nasal Coronavir HKU1 PCR NOT DETECTED 08/17/20 00:57 Nasal Coronavir NL63 PCR NOT DETECTED 08/17/20 00:57 Nasal Coronavir OC43 PCR NOT DETECTED 08/17/20 00:57 Nasal Enterovir/Rhinovir PCR NOT DETECTED 08/17/20 00:57 Nasal Influenza B PCR NOT DETECTED 08/17/20 00:57 Nasal Influenza A PCR NOT DETECTED 08/17/20 00:57 Nasal Parainfluen 1 PCR NOT DETECTED 08/17/20 00:57 Nasal Parainfluen 2 PCR NOT DETECTED 08/17/20 00:57 Nasal Parainfluen 3 PCR NOT DETECTED 08/17/20 00:57 Nasal Parainfluen 4 PCR NOT DETECTED 08/17/20 00:57 Nasal RSV (PCR) NOT DETECTED 08/17/20 00:57 Nasal B.pertussis DNA PCR NOT DETECTED 08/17/20 00:57 Nasal C.pneumoniae (PCR) NOT DETECTED 08/17/20 00:57 Mark Human Metapneumo PCR NOT DETECTED 08/17/20 00:57 Nasal M.pneumoniae (PCR) NOT DETECTED 08/17/20 00:57 Nasal SARS-CoV-2 (PCR) NOT DETECTED 08/17/20 00:57 ABX Reporting Has patient been on IV antibiotics over the past 48 hours?: No Current Medications - Current Medications Current Medications: Active Medications Aspirin (Aspirin 300 Mg Supp) 300 mg [place] DAILY [facility] Last Admin: 08/17/20 10:06 Dose: 300 mg Documented by: Hydralazine HCl (Hydralazine Inj 20 Mg/Ml Vial) 10 mg IVP Q6H PRN PRN Reason: Hypertensive Emergency Potassium Chloride/Dextrose/Sod Cl (D5.45ns W/20 Meq Kcl) 1,000 mls @ 83.3 mls/hr IV .Q12H1M [facility] Stop: 08/18/20 08:55 Last Admin: 08/17/20 09:23 Dose: 83.3 mls/hr Documented by: Metoprolol Tartrate (Metoprolol 5 Mg/5 Ml Vial) 5 mg IVP Q6H PRN PRN Reason: Tachycardia Ondansetron HCl (Ondansetron 4 Mg/2 Ml Vial) 4 mg IVP Q6HR PRN PRN Reason: Nausea / Vomiting Sodium Chloride (Sodium Chloride Flush 0.9% 10 Ml Syringe) 10 ml IVP PRN PRN PRN Reason: NEEDED PER PROVIDER ORDERS Last Admin: 08/17/20 02:55 Dose: 10 ml Documented by: Sodium Chloride (Sodium Chloride Flush 0.9% 10 Ml Syringe) 10 ml IVP 0100,0900,1700 [facility] Last Admin: 08/17/20 09:24 Dose: 10 ml Documented by: Diltiazem HCl [Cardizem LA] 240 mg PO DAILY 08/17/20 Furosemide [Lasix] 40 mg PO DAILY 08/17/20 Potassium Chloride [Klor-Con 10] 10 meq PO DAILY 08/17/20 Rivaroxaban [Xarelto] 20 mg PO QDDINNER 08/17/20 Rosuvastatin Calcium [Crestor] 2.5 mg PO QPM 08/17/20
[2020-08-18] MEDS: SODIUM CHLORIDE FLUSH 0.9% 10 ML SYRINGE IVP SCH ×3 (01:27→17:10)
[2020-08-18 05:13] LABS: BASOPHILS % (AUTO) 0.1 %; HCT - HEMATOCRIT 35.8 % (37.0-47.0); LYMPHOCYTES # (AUTO) 0.9 10^3/uL (1.5-3.5); LYMPHOCYTES % (AUTO) 4.6 %; MEAN CORPUSCULAR HGB CONC 30.7 g/dL (32.0-36.0); MEAN CORPUSCULAR VOLUME 84.6 fL (81.0-99.0); MEAN PLATELET VOLUME 9.6 fL (7.9-10.8); MONOCYTES % (AUTO) 5.2 %; NEUTROPHILS # (AUTO) 16.6 10^3/uL (1.5-6.6); NEUTROPHILS % (AUTO) 89.7 %; PLT - PLATELET COUNT 318 10^3/uL (130-450); RED BLOOD COUNT 4.23 10^6/uL (4.20-5.40); RED CELL DISTRIBUTION WIDTH 16.6 % (12.0-15.0); WHITE BLOOD COUNT 18.5 x10^3/uL (4.8-10.8)
[2020-08-18 05:18] LABS: CALCIUM 8.7 mg/dL (8.5-10.3); CREATININE 0.5 mg/dL (0.4-1.0); POTASSIUM 3.6 mmol/L (3.5-5.0)
[2020-08-18] MEDS: ASPIRIN 300 MG SUPP PR SCH (08:06)
[2020-08-18] MEDS ORDERED: hydrALAZINE INJ 20 MG/ML VIAL IVP PRN (09:04)
[2020-08-18] MEDS: D5.45NS W/20 MEQ KCL 1,000 ML IV SCH ×2 (09:20→21:32)
--- NOTE | 2020-08-18 09:47 | XRAY Report ---
PROCEDURE: Chest 1 View X-Ray INDICATIONS: sob TECHNIQUE: One view of the chest was acquired. COMPARISON: 10/24/2018 2 view chest FINDINGS: Surgical changes and devices: None. Lungs and pleura: No pleural effusions or pneumothorax. Lungs are mildly edematous. Mediastinum: Mediastinal contours appear normal. Heart size is globally mildly enlarged. Bones and chest wall: No suspicious bony lesions. Overlying soft tissues appear unremarkable. IMPRESSION: 2 view chest did not show cardiomegaly or CHF in October 2018. Mild acute CHF appears present [place]. Reviewed by: Haroldo Amaro MD on 08/18/2020 9:45 AM PDT Approved by: Haroldo Amaro MD on 08/18/2020 9:45 AM PDT Station ID: [id number]
[2020-08-18] MEDS ORDERED: SCOPOLAMINE PATCH TOP SCH (10:00)
[2020-08-18] MEDS ORDERED: D5.45NS W/20 MEQ KCL 1,000 ML IV SCH (10:00)
[2020-08-18] MEDS ORDERED: MORPHINE SOL 10 MG/0.5 ML ORAL SYRINGE PO PRN (14:38)
--- NOTE | 2020-08-18 15:01 | CONSULTATION NOTE ---
Palliative Care Follow Up - Referral Referring Provider: CARLA Rdz Time of Visit: [id number] Referral setting: Hospitalized patient Referral Reason: CVA/Advanced Care Planning - Information Sources Records reviewed: Previous records reviewed History/Review of Systems obtained from: Family (daughter,Callie), Nursing (JAMIR Gorman), Other (Hospitalist, CARLA Dimas; Social Work,Lisa) Exam limitations: Clinical condition (unresponsive) - History of Present Illness Update Brief HPI Update: This is an 84-year-old [place] female with a history of atrial fibrillation who sustained a CVA who was seen today with her daughter, Callie present due to continued symptom burden due to CVA and advance care planning. The patient was at her baseline on 08/16 working in her garden and ambulating with her Rollator she was found in the evening after dinner on the floor by her granddaughter. She had emesis by her head and was not responding to her children. Children cleaned her up within the home and contacted EMS where she presented to the emergency department and head CT and neck CTA demonstrated "subacute parenchymal brain infarction and a thrombus in the left carotid artery extending into and including the left MCA territory." Telestroke neurology was consulted and the patient was deemed not a candidate for anticoagulation or antithrombotics and also was deemed to have a poor prognosis and would likely require longterm care for the rest of her life. The patient was minimally responsive on 08/17 and unable to follow commands to participate in a swallow evaluation at the bedside by MOLD MAINTENANCE TECHNICIAN. Since yesterday her WBC has increased to greater than 18,000. A chest x-ray was obtained which demonstrated mild CHF but no signs of aspiration pneumonia however, given the patient's oral secretions and unresponsiveness it may have not developed on imaging. She remains n.p.o with IV fluids. Yesterday, the patient was able to squeeze her daughter's hand minimally and opened her eyes. Today she has been unresponsive with increased oral secretions. Respiratory therapy has been at the bedside she has had a desat uration in her oxygen and now is requiring supplemental oxygen via nasal cannula. She has not responded to her daughter, María Reed who is been present at the bedside since this morning. The patient's daughter, María Reed who would have been the patient's designated healthcare power of real estate associate attorney had a meeting with all of her siblings who are spread across the globe and are in agreement to focus on comfort if the patient had a further decline in status which is indicative and present today. The patient is seen resting in bed, mouth breathing no evidence of respiratory distress with supplemental oxygen in place. She has evidence of oral pharyngeal secretions and appears to be comfortable in her hospital bed. Past Medical History: Patient has a past medical history of hypertension, atrial fibrillation, CVA, hyperlipidemia, cataract extraction OU. Social History - Living Situation Living arrangement: At home Living Situation: With family Support System: Patient was born in the [facility] and had 10 children, 7 boys and 3 girls all vaginally. She relocated to the [facility] in January 1993. She has 2 daughters residing in [place], 1 son is in [facility], and 4 children in the [facility]. She presently resides with 2 sons, [id number] and grandchildren. They all reside next-door to the patient's daughter and pseudo-DPCallie TRUJILLO ([phone]).The patient is bilingual in both Honduran and Tagalog. 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 She is Sikh and is affiliated with [facility]. Social work has contacted father emery Satya who is to be present this afternoon for an anointment of the sick. Medications/Allergies - Medications Active Medication List: Active Medications Potassium Chloride/Dextrose/Sod Cl (D5.45ns W/20 Meq Kcl) 1,000 mls @ 75 mls/hr IV .[id number] [facility] Last Admin: 08/18/20 09:20 Dose: 75 mls/hr Documented by: Morphine Sulfate (Morphine Zayra 10 Mg/0.5 Ml Oral Syringe) 5 mg PO Q2HR PRN PRN Reason: PAIN Ondansetron HCl (Ondansetron 4 Mg/2 Ml Vial) 4 mg IVP Q6HR PRN PRN Reason: Nausea / Vomiting Scopolamine HBr (Scopolamine Patch) 1 patch TOP Q3D [facility] Last Admin: 08/18/20 09:20 Dose: 1 patch Documented by: Sodium Chloride (Sodium Chloride Flush 0.9% 10 Ml Syringe) 10 ml IVP PRN PRN PRN Reason: NEEDED PER PROVIDER ORDERS Last Admin: 08/17/20 02:55 Dose: 10 ml Documented by: Sodium Chloride (Sodium Chloride Flush 0.9% 10 Ml Syringe) 10 ml IVP 0100,0900,1700 JUN Last Admin: 08/18/20 08:06 Dose: 10 ml Documented by: Diltiazem HCl [Cardizem LA] 240 mg PO DAILY 08/17/20 Furosemide [Lasix] 40 mg PO DAILY 08/17/20 Potassium Chloride [Klor-Con 10] 10 meq PO DAILY 08/17/20 Rivaroxaban [Xarelto] 20 mg PO QDDINNER 08/17/20 Rosuvastatin Calcium [Crestor] 2.5 mg PO QPM 08/17/20 - Allergies Allergies/Adverse Reactions: Allergies Allergy/AdvReac Type Severity Reaction Status Date / Time No Known Drug Allergies Allergy Verified 08/17/20 00:55 Review of Systems - Constitutional Constitutional: reports: Weight stable. denies: Fever - Ears, Nose & Throat Ears, Nose & Throat: reports: Dentures - Cardiovascular Cardiovascular: reports: Other (history of afib). denies: Edema - Respiratory Respiratory: reports: Other (nasal canula required) - Gastrointestinal Gastrointestinal: reports: Other (NPO due to sedation and unable to pass bedside MOLD MAINTENANCE TECHNICIAN 08/17). denies: Abdominal distention, Vomiting - Genitourinary Genitourinary: reports: Other (roth catheter in place draining clear yellow urine) - Musculoskeletal Musculoskeletal: reports: Stiffness - Integumentary Integumentary: denies: Rash - Neurological Neurological: reports: General weakness, Other (Right sided weakness UE and LE) - Psychiatric Psychiatric: denies: Behavior disturbances - All Other Systems All Other Systems: reports: Reviewed and negative (ROS supplemented by patient's daughter,JAMRI Walters and hospitalist as patient in unresponsive to name or stimuli.) Physical Exam - Vital Signs Vital Signs: Vital Signs x48h Temp Pulse Resp BP BP Pulse Ox 08/18/20 14:20 178/78 H 08/18/20 12:19 30 H 92 08/18/20 12:08 37.9 C 104 H 30 H 137/93 H 90 L 08/18/20 09:55 166/86 H 08/18/20 09:32 190/88 H 08/18/20 09:29 194/86 H 08/18/20 08:03 37.7 C 92 20 194/97 H 94 - Physical Exam General Appearance: positive: No acute distress, Nonresponsive, Other (frail elderly woman in hospital bed) ENT: positive: No signs of dehydration, Other (dentures not in place to upper or lower) Neck: positive: No JVD, Trachea midline Cardiovascular: positive: No murmur, Irregularly irregular Respiratory: positive: No respiratory distress, Rhonchi, Other (+oral pharyngeal secretions noted) Abdomen: positive: Non-tender, Soft. negative: Nml bowel sounds (slightly diminished bowel sounds), Distended Skin: positive: No symptoms Extremities: positive: No pedal edema Neurologic/Psychiatric: positive: Weakness, Other (hemipalgia to right UE and RLE). negative: Oriented x3 (unresponsive; not responding to tactile or verbal stimuli.) Palliative Care - POLST Patient has POLST: Yes POLST Status: DNR, Comfort Measures Pain: No pain Performance Status: PPS 10% - Palliative Care Discussion: Unfortunately, the patient has a history of atrial fibrillation that now presented with an acute CVA with residual right-sided weakness and is unr esponsive and has worsened in the last 24 hours. Per neurology consult the patient has a poor prognosis and would need longterm care for the rest of her life. The fact that the patient is no longer responsive to her daughter present at the bedside and remains n.p.o. and unable to swallow the patient's family has had a lengthy discussion and wish to focus on quality of life and comfort measures within the home environment with her and transition to hospice services. The patient's daughter, María Reed and primary spokesperson and who would designated the verbal DPOA by the patient's herself prior to her acute event states that her mother would never have wanted to be connected to tubes and would not want a PEG tube placed. Contacted 3 additional children, C2, Garland, and Olamide as the patient has 10 children scattered across the globe to participate in advance care planning and all parties are in agreement to have the patient return home where she may be with her family for end-of-life and the family wishes to support the patient in this transition with hospice services. POLST updated with patient's daughter and children via phone as DN AR with comfort measures. This is been a difficult transition for the patient's family as to prior to this acute event she was a functional individual acting and dependently. The family is supportive of one another moving forward taking "1 day at a time." Given the patient is unable to take anything orally by mouth and potentially has had some aspiration would avoid any pleasure feeds and would focus on oral care and once IV fluids are stopped would expect prognosis to be days to weeks as best we know. Empathetic and supportive listening provided to the patient's children. Results - Lab Results Fish Bones: 08/18/20 04:35 08/18/20 04:35 Lab and Imaging Results: Lab Results x24hrs 08/18/20 08/18/20 Range/Units 04:35 04:35 WBC 18.5 H (4.8-10.8) x10^3/uL RBC 4.23 (4.20-5.40) 10^6/uL Hgb 11.0 L (12.0-16.0) g/dL Hct 35.8 L (37.0-47.0) % MCV 84.6 (81.0-99.0) fL MCH 26.0 L (27.0-31.0) pg MCHC 30.7 L (32.0-36.0) g/dL RDW 16.6 H (12.0-15.0) % Plt Count 318 (130-450) 10^3/uL MPV 9.6 (7.9-10.8) fL Neut # (Auto) 16.6 H (1.5-6.6) 10^3/uL Lymph # (Auto) 0.9 L (1.5-3.5) 10^3/uL Johnson # (Auto) 1.0 (0.0-1.0) 10^3/uL Eos # (Auto) 0.0 (0.0-0.7) 10^3/uL Baso # (Auto) 0.0 (0.0-0.1) 10^3/uL Absolute Nucleated RBC 0.00 x10^3/uL Nucleated RBC % 0.0 /100WBC Sodium 136 (135-145) mmol/L Potassium 3.6 (3.5-5.0) mmol/L Chloride 100 L (101-111) mmol/L Carbon Dioxide 23 (21-32) mmol/L Anion Gap 13.0 (6-13) BUN 13 (6-20) mg/dL Creatinine 0.5 (0.4-1.0) mg/dL Estimated GFR (MDRD) 118 (>89) Glucose 205 H (70-100) mg/dL Calcium 8.7 (8.5-10.3) mg/dL Impression and Recommendations - Palliative Care Impression: This is an unfortunate 84-year-old female with a history of atrial fibrillation who sustained a significant CVA resulting in right-sided residual weakness and progressive decline and now in an unresponsive state who does not have a firm designated healthcare power of real estate associate attorney in the setting of 10 children. She has been acting family spokesperson in her second oldest child, María Reed and with a family conference with the children that could be present they wish to focus on quality of life and comfort measures within the home environment with hospice services for the patient to have a comfortable and dignified at home surrounded by her family. Recommendations/Counseling Done: 1. CVA. Acute event in the setting of atrial fibrillation. Patient is unresponsive with progressive decline. Per neurology consult via telestroke neurology the patient has a poor prognosis. Patient is unable to follow commands and is unresponsive to verbal or tactile stimulus. Family recognizes this additional decline and wish to honor the patient's wishes that she would not want any artificial nutrition via tube and to focus on comfort measures wit hin the home environment. María Brianna II oldest daughter and spokesperson for the patient and family are in agreement with transition to hospice services. 2. Oxygen desaturation in the setting of oral pharyngeal secretions. Likely due to patient transitioning towards end of life. Continue supplemental oxygen for support and comfort measures. 3. Advanced care planning. POLST updated as DN AR with comfort measures and provided copy to patient's daughter, María Reed. Patient's family and the family spokesperson/daughter, María Reed wish to focus on comfort measures within the home environment with support of hospice services. Plan is for the patient to be admitted to hospice services tomorrow afternoon to be surrounded by her family. Patient's children recognize that the patient has a poor prognosis and likely has days. Discussed with hospitalist to transition to comfort medications orally to ensure ease of transition to home hospice. At the present time would continue support with IV fluids until the patient is discharged to optimize her potential time to spend with her family. Supportive and empathetic listening provided to the patient's children. Total time spent 80 minutes with greater than 50% of the spent in counseling and coordination of care with the patient's daughter, CallieIdania with the patient's 3 children(Olamide, C2, Indigoar), RN, social work, [facility] and hospitalist; review of progression of the patient's CVA and clinical findings on examination; review of symptom management and hospice services; and anticipatory guidance.
--- NOTE | 2020-08-18 16:09 | PROVIDER PROGRESS NOTE ---
Assessment/Plan - Problem List (1) Cerebrovascular accident (CVA) Qualifiers: CVA mechanism: thrombosis Precerebral and cerebral artery: middle cerebral artery Laterality of affected vessel: left Qualified Code(s): I63.312 - Cerebral infarction due to thrombosis of left middle cerebral artery Assessment/Plan: 08/18, Patient's condition become Deteriorated. Patient became totally unresponsive. Patient also present respiratory distress, Telemetry show patient had atrial fibrillation with RVR. Facial droop become more obvious. Patient's daughter come to the hospital, patient's family make a final decision to do comfortable management in the hospital and follow-up with hospice care. Appreciated palliative care consult for patient and her family. Patient is barely waken. Patient did not response to Command, and she is not speaking. 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 Patient failed to speech therapist for swallowing test. Patient's daughter came to the hospital and clearly stated patient does not want to have feeding tube. We consulted with the palliative care, We will continue to discuss care plan with patient's family. Patient's daughter State she will discuss with pt's whole patient family to make final decision We will continue supp aspirin, Continue to allow patient rise blood pressure, add hydralazine as needed, Echo is pending, continue IVF - Current Meds Current Meds: Current Medications Generic Name Dose Route Start Last Admin Trade Name Freq PRN Reason Stop Dose Admin Potassium Chloride/Dextrose/Sod Cl 1,000 mls @ 75 mls/hr 08/18/20 10:00 08/18/20 09:20 D5.45ns W/20 Meq Kcl IV 75 mls/hr .[id number] JUN Administration Scopolamine HBr 1 patch 08/18/20 10:00 08/18/20 09:20 Scopolamine Patch TOP 1 patch Q3D JUN Administration Sodium Chloride 10 ml 08/17/20 00:35 08/17/20 02:55 Sodium Chloride Flush 0.9% 10 Ml Syringe IVP 10 ml PRN PRN Administration NEEDED PER PROVIDER ORDERS Sodium Chloride 10 ml 08/17/20 01:00 08/18/20 08:06 Sodium Chloride Flush 0.9% 10 Ml Syringe IVP 10 ml 0100,0900,1700 JUN Administration - Lab Result Fish Bone Diagrams: 08/18/20 04:35 08/18/20 04:35 - Additional Planning My Orders: My Active Orders 08/18/20 Hospice Referral for Post-Discharge Services [CONS] Routine 08/18/20 10:00 D5.45ns W/20 Meq KCl 1,000 ml IV 75 mls/hr Scopolamine Patch [Transderm-Scop] 1 patch TOP Q3D 08/18/20 14:38 Morphine Oral Soln [Roxanol] 5 mg PO Q2HR PRN Subjective - Subjective Patient Reports: Other (Unresponsive) Objective Vital Signs: Vital Signs - 24 hr 08/17/20 08/17/20 08/17/20 16:25 20:36 22:20 Temperature 37.8 C Heart Rate [ 73 100 108 H Brachial] Respiratory 24 22 Rate Blood Pressure Blood Pressure [Left Brachial artery] Blood Pressure 162/84 H 188/95 H 196/121 H [Right Brachial artery] O2 Saturation 97 96 08/17/20 08/18/20 08/18/20 22:22 00:00 05:00 Temperature 36.7 C Heart Rate [ 107 H 95 111 H Brachial] Respiratory 20 22 Rate Blood Pressure Blood Pressure 185/98 H 184/79 H [Left Brachial artery] Blood Pressure 196/115 H [Right Brachial artery] O2 Saturation 96 100 08/18/20 08/18/20 08/18/20 08:03 09:29 09:32 Temperature 37.7 C Heart Rate [ 92 Brachial] Respiratory 20 Rate Blood Pressure Blood Pressure [Left Brachial artery] Blood Pressure 194/97 H 194/86 H 190/88 H [Right Brachial artery] O2 Saturation 94 08/18/20 08/18/20 08/18/20 09:55 12:08 12:19 Temperature 37.9 C Heart Rate [ 104 H Brachial] Respiratory 30 H 30 H Rate Blood Pressure Blood Pressure [Left Brachial artery] Blood Pressure 166/86 H 137/93 H [Right Brachial artery] O2 Saturation 90 L 92 08/18/20 08/18/20 08/18/20 14:20 14:50 14:55 Temperature Heart Rate [ 104 H Brachial] Respiratory Rate Blood Pressure 178/78 H 164/81 H Blood Pressure [Left Brachial artery] Blood Pressure 142/76 H [Right Brachial artery] O2 Saturation 08/18/20 15:00 Temperature Heart Rate [ 107 H Brachial] Respiratory Rate Blood Pressure Blood Pressure 142/82 H [Left Brachial artery] Blood Pressure [Right Brachial artery] O2 Saturation Oxygen O2 Source Nasal cannula Oxygen Flow Rate 2 I&O (Last 24 Hrs): Intake and Output Totals x24h 08/16/20 08/17/20 08/18/20 23:59 23:59 23:59 Intake Total 1527.327 408.57 Output Total 1625 3050 Balance -97.673 -2641.43 General: Other (Unresponsive) HEENT: Atraumatic Neck: Supple Lymphatic: no adenopathy Neuro: Other (Unresponsive) Cardiovascular: Normal S1, Normal S2 Respiratory: Chest non-tender Abdomen: Normal bowel sounds - Results Results: Laboratory Results WBC 18.5 x10^3/uL (4.8-10.8) H 08/18/20 04:35 RBC 4.23 10^6/uL (4.20-5.40) 08/18/20 04:35 Hgb 11.0 g/dL (12.0-16.0) L 08/18/20 04:35 Hct 35.8 % (37.0-47.0) L 08/18/20 04:35 MCV 84.6 fL (81.0-99.0) 08/18/20 04:35 MCH 26.0 pg (27.0-31.0) L 08/18/20 04:35 MCHC 30.7 g/dL (32.0-36.0) L 08/18/20 04:35 RDW 16.6 % (12.0-15.0) H 08/18/20 04:35 Plt Count 318 10^3/uL (130-450) 08/18/20 04:35 MPV 9.6 fL (7.9-10.8) 08/18/20 04:35 Neut # (Auto) 16.6 10^3/uL (1.5-6.6) H 08/18/20 04:35 Lymph # (Auto) 0.9 10^3/uL (1.5-3.5) L 08/18/20 04:35 Christian # (Auto) 1.0 10^3/uL (0.0-1.0) 08/18/20 04:35 Eos # (Auto) 0.0 10^3/uL (0.0-0.7) 08/18/20 04:35 Baso # (Auto) 0.0 10^3/uL (0.0-0.1) 08/18/20 04:35 Absolute Nucleated RBC 0.00 x10^3/uL 08/18/20 04:35 Nucleated RBC % 0.0 /100WBC 08/18/20 04:35 Manual Slide Review Indicated 08/17/20 04:45 WBC Morphology NORMAL APPEARANCE (NORMAL) 08/17/20 04:45 Platelet Estimate NORMAL (130-450,000) (NORMAL) 08/17/20 04:45 Platelet Morphology NORMAL APPEARANCE (NORMAL) 08/17/20 04:45 RBC Morph Micro Appear 1+ HYPOCHROMASIA (NORMAL) 1+ OVALOCYTES (NORMAL) 08/17/20 04:45 RBC Morph Micro Appear 1+ HYPOCHROMASIA (NORMAL) 1+ OVALOCYTES (NORMAL) 08/17/20 04:45 PT 13.3 secs (9.9-12.6) H 08/16/20 23:55 INR 1.2 (0.8-1.2) 08/16/20 23:55 APTT 26.2 secs (24.9-33.3) 08/16/20 23:55 Sodium 136 mmol/L (135-145) 08/18/20 04:35 Potassium 3.6 mmol/L (3.5-5.0) 08/18/20 04:35 Chloride 100 mmol/L (101-111) L 08/18/20 04:35 Carbon Dioxide 23 mmol/L (21-32) 08/18/20 04:35 Anion Gap 13.0 (6-13) 08/18/20 04:35 BUN 13 mg/dL (6-20) 08/18/20 04:35 Creatinine 0.5 mg/dL (0.4-1.0) 08/18/20 04:35 Estimated GFR (MDRD) 118 (>89) 08/18/20 04:35 Glucose 205 mg/dL (70-100) H 08/18/20 04:35 Calcium 8.7 mg/dL (8.5-10.3) 08/18/20 04:35 Total Bilirubin 0.8 mg/dL (0.2-1.0) 08/17/20 04:45 AST 38 IU/L (10-42) 08/17/20 04:45 ALT 28 IU/L (10-60) 08/17/20 04:45 Alkaline Phosphatase 100 IU/L (42-121) 08/17/20 04:45 Troponin I High Sens 12.9 ng/L (2.3-14.8) 08/17/20 04:45 Total Protein 7.9 g/dL (6.7-8.2) 08/17/20 04:45 Albumin 4.7 g/dL (3.2-5.5) 08/17/20 04:45 Globulin 3.2 g/dL (2.1-4.2) 08/17/20 04:45 Albumin/Globulin Ratio 1.5 (1.0-2.2) 08/17/20 04:45 Triglycerides 87 mg/dL (-149) 08/17/20 04:45 Cholesterol 154 mg/dL (-199) 08/17/20 04:45 LDL Cholesterol, Calc 86 mg/dL (-129) 08/17/20 04:45 VLDL Cholesterol 17 mg/dL 08/17/20 04:45 HDL Cholesterol 51 mg/dL (60-) L 08/17/20 04:45 LDL/HDL Ratio 1.7 (<4.4) 08/17/20 04:45 Cholesterol/HDL Ratio 3.0 (<4.4) 08/17/20 04:45 Urine Color YELLOW 08/17/20 10:30 Urine Clarity CLEAR (CLEAR) 08/17/20 10:30 Urine pH 7.0 PH (5.0-7.5) 08/17/20 10:30 Ur Specific [place] 1.020 (1.002-1.030) 08/17/20 10:30 Urine Protein TRACE mg/dL (NEGATIVE) 08/17/20 10:30 Urine Glucose (UA) NEGATIVE mg/dL (NEGATIVE) 08/17/20 10:30 Urine Ketones NEGATIVE mg/dL (NEGATIVE) 08/17/20 10:30 Urine Occult Blood SMALL (NEGATIVE) H 08/17/20 10:30 Urine Nitrite NEGATIVE (NEGATIVE) 08/17/20 10:30 Urine Bilirubin NEGATIVE (NEGATIVE) 08/17/20 10:30 Urine Urobilinogen 0.2 (NORMAL) E.U./dL (NORMAL) 08/17/20 10:30 Ur Leukocyte Esterase NEGATIVE (NEGATIVE) 08/17/20 10:30 Urine RBC 0-5 /HPF (0-5) 08/17/20 10:30 Urine WBC 0-3 /HPF (0-5) 08/17/20 10:30 Ur Squamous Epith Cells RARE Squamous (<= Few) 08/17/20 10:30 Urine Bacteria None Seen /HPF (None Seen) 08/17/20 10:30 Urine Mucus Few Strands 08/17/20 10:30 Urine Culture Comments NOT INDICATED 08/17/20 10:30 Nasal Adenovirus (PCR) NOT DETECTED 08/17/20 00:57 Nasal B. parapertussis DNA (PCR) NOT DETECTED 08/17/20 00:57 Nasal Coronavir 229E PCR NOT DETECTED 08/17/20 00:57 Nasal Coronavir HKU1 PCR NOT DETECTED 08/17/20 00:57 Nasal Coronavir NL63 PCR NOT DETECTED 08/17/20 00:57 Nasal Coronavir OC43 PCR NOT DETECTED 08/17/20 00:57 Nasal Enterovir/Rhinovir PCR NOT DETECTED 08/17/20 00:57 Nasal Influenza B PCR NOT DETECTED 08/17/20 00:57 Nasal Influenza A PCR NOT DETECTED 08/17/20 00:57 Nasal Parainfluen 1 PCR NOT DETECTED 08/17/20 00:57 Nasal Parainfluen 2 PCR NOT DETECTED 08/17/20 00:57 Nasal Parainfluen 3 PCR NOT DETECTED 08/17/20 00:57 Nasal Parainfluen 4 PCR NOT DETECTED 08/17/20 00:57 Nasal RSV (PCR) NOT DETECTED 08/17/20 00:57 Nasal B.pertussis DNA PCR NOT DETECTED 08/17/20 00:57 Nasal C.pneumoniae (PCR) NOT DETECTED 08/17/20 00:57 Mark Human Metapneumo PCR NOT DETECTED 08/17/20 00:57 Nasal M.pneumoniae (PCR) NOT DETECTED 08/17/20 00:57 Nasal SARS-CoV-2 (PCR) NOT DETECTED 08/17/20 00:57 ABX Reporting Has patient been on IV antibiotics over the past 48 hours?: No Current Medications - Current Medications Current Medications: Active Medications Potassium Chloride/Dextrose/Sod Cl (D5.45ns W/20 Meq Kcl) 1,000 mls @ 75 mls/hr IV .[id number] JUN Last Admin: 08/18/20 09:20 Dose: 75 mls/hr Documented by: Morphine Sulfate (Morphine Zayra 10 Mg/0.5 Ml Oral Syringe) 5 mg PO Q2HR PRN PRN Reason: PAIN Ondansetron HCl (Ondansetron 4 Mg/2 Ml Vial) 4 mg IVP Q6HR PRN PRN Reason: Nausea / Vomiting Scopolamine HBr (Scopolamine Patch) 1 patch TOP Q3D [facility] Last Admin: 08/18/20 09:20 Dose: 1 patch Documented by: Sodium Chloride (Sodium Chloride Flush 0.9% 10 Ml Syringe) 10 ml IVP PRN PRN PRN Reason: NEEDED PER PROVIDER ORDERS Last Admin: 08/17/20 02:55 Dose: 10 ml Documented by: Sodium Chloride (Sodium Chloride Flush 0.9% 10 Ml Syringe) 10 ml IVP 0100,0900,1700 [facility] Last Admin: 08/18/20 08:06 Dose: 10 ml Documented by: Diltiazem HCl [Cardizem LA] 240 mg PO DAILY 08/17/20 Furosemide [Lasix] 40 mg PO DAILY 08/17/20 Potassium Chloride [Klor-Con 10] 10 meq PO DAILY 08/17/20 Rivaroxaban [Xarelto] 20 mg PO QDDINNER 08/17/20 Rosuvastatin Calcium [Crestor] 2.5 mg PO QPM 08/17/20
[2020-08-18 17:16] VITALS: BP 151/81
--- NOTE | 2020-08-19 00:46 | Discharge Plan ---
Discharge Plan Problem Reviewed?: Yes Disposition: 20 No Smoking: If you smoke, Please STOP! Call for help.
--- NOTE | 2020-08-19 00:47 | DISCHARGE SUMMARY ---
"Discharge Summary Admit Date: 08/17/20 Discharge Date: 08/19/20 Discharging Provider: María Ngo MD Primary Care Provider: Robby Darby Discharge Disposition: 20 - DIAGNOSES Discharge Diagnoses with Status of Each Condition: 1. 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 Carotid thrombosis, left 3. Hypertension 4. Atrial fibrillation with RVR 5. Abnormal EKG 6. Anemia - HPI History of Present Illness: This is an 84-year-old [place] female with a history of A. fib. She lives with a family member and her daughter lives next door. This patient's last known well was 2 PM when she was walking and talking normally. At 10 PM, her granddaughter found her on the floor, unable to speak. She was brought to the ER. The exam showed that she was flaccid on the right side, aphasic and unable to follow commands. She also had left gaze deviation. A head CT and head and neck CTA show findings of a subacute parenchymal brain infarction, and a thrombus (or dissection) in the left carotid artery extending into and occluding the left MCA territory. The posterior circulation is also abnormal. The ED provider reached out to [facility] and they reviewed the case and the images. The Neurologist said the patient is not a candidate for anticoagulation or antithrombotics because of her DNR status and limited intervention status and also because she is out of the window of time for intervention, especially given how dense the stroke already is. The [facility] told our ED provider that she has a very bad prognosis and that she will likely need complete long-term care for the rest of her life. The Hospitalist team was contacted, and we are admitting her for management of an acute completed stroke. 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 Head CT with acute versus early subacute left middle cerebral artery infarct with a left M1 segment thrombus. It involves almost all of the left middle cerebral artery territory. 2. Head and neck CT angiogram with complete occlusion of the left internal carotid artery beginning at the origin extending through the terminus. Complete occlusion of the left M1 segment. Diminished enhancement throughout the entire left middle cerebral artery territory. Right carotid siphon and proximal M1 arteriosclerotic disease without hemodynamically significant stenosis. In the posterior circulation there is atherosclerotic calcification in the V4 segment and proximal basilar artery without significant stenosis. 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 3. Chest x-ray with a mildly globally enlarged heart but no pneumonia or CHF. 4. Echocardiogram with mild concentric left ventricular hypertrophy. Ejection fraction 65 to 70%.Pathology and subtle regional wall motion abnormalities unable to be assessed. Moderate to severe left atrial volume index increased. Moderate right atrial enlargement. No aortic stenosis. Mildly abnormal right heart pressures with RVSP at rest 47 mmHg. - HOSPITAL COURSE Hospital Course: Patient was admitted to the hospital as a stroke and with expectant management to see if she would improve. On August 18 she deteriorated with acute respiratory distress. Atrial fibrillation was with RVR. Right facial droop was much more obvious. Her daughter came to the hospital and she consulted with all of her siblings (10 children). They felt that mom would not want to continue life this way. They had already spoken to palliative care consultation. They wanted to transition the patient to comfort measures only. Patient was barely responsive. She did not follow commands and was not speaking, and unable to swallow. Over the course of the next 48 hours we attempted placement for terminal care. The patient finally peacefully at 12:20 AM with her daughter at the bedside. was pronounced. On exam there was no pulse, pressure, pupils were fixed and dilated. There is no spontaneous respiration.Greater than 30 minutes was spent at the bedside with daughter. The patient's remains will be released to [place] and home. - ALLERGIES Allergies/Adverse Reactions: Allergies Allergy/AdvReac Type Severity Reaction Status Date / Time No Known Drug Allergies Allergy Verified 08/17/20 00:55 - MEDICATIONS Home Medications: Ambulatory Orders Medication Instructions Recorded Confirmed Diltiazem HCl [Cardizem LA] 240 mg PO DAILY 08/17/20 08/17/20 Furosemide [Lasix] 40 mg PO DAILY 08/17/20 08/17/20 Potassium Chloride [Klor-Con 10] 10 meq PO DAILY 08/17/20 08/17/20 Rivaroxaban [Xarelto] 20 mg PO QDDINNER 08/17/20 08/17/20 Rosuvastatin Calcium [Crestor] 2.5 mg PO QPM 08/17/20 08/17/20 - LABS Result Diagrams: 08/18/20 04:35 08/18/20 04:35"
== END 2020-08-19 00:20 | disposition expired | DRG 64 ==
LOC: ED 23:05 → MS3 08-17 00:34
PROVIDERS: ADMIT Internal Medicine; ATTEND Specialist
DX: I63.412 Cerebral infarction due to embolism of left middle cerebral artery (principal); R40.20 Unspecified coma; I63.232 Cerebral infarction due to unspecified occlusion or stenosis of left carotid arteries; G81.01 Flaccid hemiplegia affecting right dominant side; E78.00 Pure hypercholesterolemia, unspecified; I63.312 Cerebral infarction due to thrombosis of left middle cerebral artery; Z79.01 Long term (current) use of anticoagulants; R47.01 Aphasia; H53.8 Other visual disturbances; R06.03 Acute respiratory distress; I10 Essential (primary) hypertension; I48.91 Unspecified atrial fibrillation; D64.9 Anemia, unspecified; R29.727 NIHSS score 27; R33.9 Retention of urine, unspecified; Z66 Do not resuscitate; Z51.5 Encounter for palliative care; I25.2 Old myocardial infarction; Z79.899 Other long term (current) drug therapy; Z20.822 Contact with and (suspected) exposure to COVID-19
CPT/HCPCS: 36415; 70450; 70496; 70498; 71045; 80048; 80053; 80061; 81001; 84484; 85025; 85610; 85730; 87631; 92610; 93005; 93306; 99223; 99233; 99281; 99285; A9270; J3490; Q9967; 0202U; 83721; 87086